=== PATIENT | male | born 1975 | race Caucasian/White ===

== ENCOUNTER 2018-01-30 15:11 | Emergency (ER) | payer BC, MEDICAID ==
[~2018-01-30] VITALS: Ht 193 cm; Wt 127.0 kg
[~2018-01-30 15:11] MED LIST: ATOR10TA PO; LOP25T PO; METO50TA16 PO; NO HOME MEDS; ZES10T PO
[2018-01-30 16:04] LABS: BASOPHILS # (AUTO) 0.1 X10'3 (0-0.2); BASOPHILS % (AUTO) 1.1 % (0-1); EOSINOPHILS # (AUTO) 0.6 X10'3 (0-0.9); EOSINOPHILS % (AUTO) 6.9 % (0-6); HEMATOCRIT 46.1 % (42.0-52.0); HEMOGLOBIN 16.2 g/dl (14.0-17.9); LYMPHOCYTES # (AUTO) 1.9 X10'3 (1.1-4.8); LYMPHOCYTES % (AUTO) 22.5 % (21-51); MEAN CORPUSCULAR HEMOGLOBIN 31.4 PG (27.0-31.0); MEAN CORPUSCULAR HGB CONC 35.1 % (33.0-36.5); MEAN CORPUSCULAR VOLUME 89.7 FL (78-98); MEAN PLATELET VOLUME 7.3 FL (7.4-10.4); MONOCYTES # (AUTO) 0.5 X10'3 (0-0.9); NEUTROPHILS # (AUTO) 5.3 X10'3 (1.8-7.7); NEUTROPHILS % (AUTO) 63.5 % (42-75); PLATELET COUNT 223 X10'3 (140-440); RED BLOOD COUNT 5.14 X10'6 (4.70-6.10); WHITE BLOOD COUNT 8.3 X10'3 (4.5-11.0)
[2018-01-30 16:16] VITALS: BP 117/93
[2018-01-30 16:16] LABS: ANION GAP 6 (8-16); BLOOD UREA NITROGEN 15 MG/DL (7-18); BUN/CREATININE RATIO 12.5 (5.4-32.0); CHLORIDE 100 MMOL/L (99-107); GLUCOSE 198 MG/DL (70-104); POTASSIUM 4.4 MMOL/L (3.5-5.1); SODIUM 135 MMOL/L (135-145); TOTAL CARBON DIOXIDE 29.2 MMOL/L (24-32)
[2018-01-30 16:17] LABS: ALANINE AMINOTRANSFERASE 113 U/L (12-78); ALBUMIN/GLOBULIN RATIO 1.1 (1.1-1.5); ALKALINE PHOSPHATASE 100 IU/L (46-116); ASPARTATE AMINO TRANSFERASE 47 U/L (10-37); BILIRUBIN,TOTAL 0.6 MG/DL (0.1-1.0); LIPASE 191 U/L (73-393); TOTAL PROTEIN 7.8 G/DL (6.4-8.2); eGFR 66 ML/MIN
[2018-01-30] MEDS ORDERED: TRAM50TA2 PO (17:00)
== END 2018-01-30 17:00 | disposition home or self-care (01) ==
LOC: ER 15:12
DX: M54.9 Dorsalgia, unspecified (principal); R11.0 Nausea; I10 Essential (primary) hypertension; E78.00 Pure hypercholesterolemia, unspecified; Z90.49 Acquired absence of other specified parts of digestive tract; Z98.890 Other specified postprocedural states; Z79.899 Other long term (current) drug therapy
CPT/HCPCS: 36415; 71045; 72070; 80053; 83690; 84484; 85025; 93005; 99285

== ENCOUNTER 2022-12-04 07:19 | Inpatient (IN) | payer SELFPAY ==
[~2022-12-04] VITALS: Ht 193 cm; Wt 136.3 kg
[2022-12-04] MEDS ORDERED: piperacillin/tazo 3.375gm/50ml 50 ML IV ONE (08:00)
[2022-12-04] MEDS ORDERED: ondansetron/PF 4mg/2ml inj IV ONE (08:00)
[2022-12-04] MEDS ORDERED: vancomycin/NS 1 GM ADD-VANTAGE 250 ML IV ONE (08:00)
[2022-12-04] MEDS: morphine 4 MG/ML inj SYRINge IV PRN ×2 (08:18→10:03)
[2022-12-04 08:40] LABS: BASOPHILS # (AUTO) 0.1 X10'3 (0-0.2); BASOPHILS % (AUTO) 0.7 % (0-1); EOSINOPHILS # (AUTO) 0.4 X10'3 (0-0.9); EOSINOPHILS % (AUTO) 3.6 % (0-6); HEMOGLOBIN 15.6 g/dl (14.0-17.9); LYMPHOCYTES # (AUTO) 1.5 X10'3 (1.1-4.8); LYMPHOCYTES % (AUTO) 14.3 % (21-51); MEAN CORPUSCULAR HEMOGLOBIN 31.9 PG (27.0-31.0); MEAN CORPUSCULAR HGB CONC 34.6 g/dL (33.0-36.5); MEAN CORPUSCULAR VOLUME 92.1 FL (78-98); MEAN PLATELET VOLUME 7.6 FL (7.4-10.4); MONOCYTES # (AUTO) 1.2 X10'3 (0-0.9); MONOCYTES % (AUTO) 11.3 % (2-12); NEUTROPHILS # (AUTO) 7.5 X10'3 (1.8-7.7); NEUTROPHILS % (AUTO) 70.1 % (42-75); PLATELET COUNT 240 X10'3 (140-440); RED BLOOD COUNT 4.89 X10'6 (4.70-6.10); WHITE BLOOD COUNT 10.8 X10'3 (4.5-11.0)
[2022-12-04 08:46] LABS: ALANINE AMINOTRANSFERASE 102 U/L (12-78); ALBUMIN 3.5 G/DL (3.4-5.0); ALBUMIN/GLOBULIN RATIO 0.9 (1.1-1.5); ALKALINE PHOSPHATASE 154 IU/L (46-116); ANION GAP 12 (8-16); ASPARTATE AMINO TRANSFERASE 69 U/L (10-37); BILIRUBIN,TOTAL 0.5 MG/DL (0.1-1.0); BLOOD UREA NITROGEN 9 MG/DL (7-18); BUN/CREATININE RATIO 8.2 (5.4-32.0); C-REACTIVE PROTEIN 2.15 MG/DL (0.0-0.5); CHLORIDE 96 MMOL/L (99-107); GLUCOSE 319 MG/DL (70-104); POTASSIUM 4.3 MMOL/L (3.5-5.1); SODIUM 132 MMOL/L (135-145); TOTAL CARBON DIOXIDE 24.2 MMOL/L (24-32); TOTAL PROTEIN 7.6 G/DL (6.4-8.2); eGFR 71 ML/MIN
[2022-12-04] MEDS ORDERED: ringers solution, lactated 1000ml IV soln IV ONE (09:15)
[2022-12-04] MEDS ORDERED: LORazepam 2 mg/ml vial IV PRN (10:10)
[2022-12-04] MEDS ORDERED: nicotine 14mg patch - 24hr TD SCH (10:10)
[2022-12-04] MEDS ORDERED: dextrose 50%-water 50ml dispensing syringe IV PRN ×2 (10:15)
[2022-12-04] MEDS ORDERED: potassium Cl 20 mEq SR tablet PO PRN ×2 (10:15)
[2022-12-04] MEDS ORDERED: morphine 2 MG/ML inj. syringe IV PRN ×3 (10:15→11:50)
[2022-12-04] MEDS ORDERED: DEXTROSE 15 GM of carb/4 tabs (each vial/BOTTLE has 4 tablets) PO PRN ×2 (10:15)
[2022-12-04] MEDS ORDERED: glucagon, human recombinant 1mg kit SUBCUT PRN (10:15)
[2022-12-04] MEDS ORDERED: potassium Cl 40MEQ/1/2NS 520ml 520 ML IV PRN (10:15)
[2022-12-04] MEDS ORDERED: magnesium 4gm in 100ml NS 100 ML IV PRN (10:15)
[2022-12-04] MEDS ORDERED: HYDROcodone/acetaminophen 5mg/325mg tablet PO PRN ×2 (10:15→11:50)
[2022-12-04] MEDS ORDERED: acetaminophen 325mg tablet PO PRN (10:15)
[2022-12-04] MEDS ORDERED: HYDROcodone/acetaminophen 10/325mg tab PO PRN (10:15)
[2022-12-04] MEDS ORDERED: magnesium Cl slow-release 64mg tablet PO PRN (10:15)
[2022-12-04] MEDS ORDERED: MESSAGE TO PHARMACY PO ONE (10:15)
[2022-12-04] MEDS: normal saline 1000ml 1,000 ML IV SCH ×3 (10:26→17:35)
--- NOTE | 2022-12-04 11:00 | NUR ---
Received report from ED RNValerie
[2022-12-04 11:25] VITALS: BP 173/107
[2022-12-04] MEDS: HYDROcodone/acetaminophen 10/325mg tab PO PRN ×2 (12:00→15:53)
[2022-12-04 12:37] LABS: HEMOGLOBIN A1C 9.9 % (4.5-6.2)
[2022-12-04] MEDS ORDERED: GABA300C PO (12:57)
[2022-12-04] MEDS ORDERED: GLIP5TAB13 PO (12:57)
[2022-12-04] MEDS ORDERED: METF-1203 (12:57)
[2022-12-04] MEDS: insulin Lispro (HumaLOG) vial - multi-dose SQ SCH ×2 (13:06→19:44)
[2022-12-04] MEDS ORDERED: LOSA100T4 PO (13:31)
[2022-12-04] MEDS: morphine 2 MG/ML inj. syringe IV PRN ×3 (13:48→19:38)
[2022-12-04] MEDS: piperacillin/tazo 3.375gm/50ml 50 ML IV SCH (15:53)
[2022-12-04 17:30] VITALS: BP 158/110
[2022-12-04] MEDS: nicotine 21mg patch - 24 hr TD SCH (17:35)
[2022-12-04] MEDS ORDERED: oxyCODONE/APAP 10/325mg tablet PO PRN (19:25)
[2022-12-04] MEDS: losartan 50mg tablet PO SCH (19:39)
[2022-12-04] MEDS: gabapentin 300mg capsule PO SCH (19:39)
[2022-12-04 22:00] VITALS: BP 177/106
[2022-12-04] MEDS: oxyCODONE/APAP 10/325mg tablet PO PRN (22:13)
[2022-12-04] MEDS: VANCOmycin 1250MG/NS 250ml Bag 250 ML IV SCH (22:14)
[2022-12-04] MEDS: heparin, porcine 5000 units/ml vial SQ SCH (22:15)
[2022-12-04] MEDS: insulin glargine (Lantus) pen - multi-dose SQ SCH (22:25)
[2022-12-05] MEDS: piperacillin/tazo 3.375gm/50ml 50 ML IV SCH ×4 (00:12→23:32)
[2022-12-05] MEDS: morphine 2 MG/ML inj. syringe IV PRN ×6 (00:12→21:40)
[2022-12-05] MEDS: oxyCODONE/APAP 10/325mg tablet PO PRN ×6 (02:07→23:27)
[2022-12-05] MEDS: normal saline 1000ml 1,000 ML IV SCH (04:00)
--- NOTE | 2022-12-05 06:30 | NUR ---
Problems reprioritized. Patient report given, questions answered & plan of care reviewed with DUSTIN Gutiérrez.
--- NOTE | 2022-12-05 06:37 | NUR ---
Patient in room [facility]. I have received report from Marlena CHAN and had the opportunity to ask questions and assume patient care.
[2022-12-05 06:43] VITALS: BP 155/103
[2022-12-05 07:09] LABS: BASOPHILS # (AUTO) 0.1 X10'3 (0-0.2); BASOPHILS % (AUTO) 1.1 % (0-1); EOSINOPHILS # (AUTO) 0.5 X10'3 (0-0.9); EOSINOPHILS % (AUTO) 7.5 % (0-6); HEMATOCRIT 41.2 % (42.0-52.0); HEMOGLOBIN 14.2 g/dl (14.0-17.9); LYMPHOCYTES # (AUTO) 1.4 X10'3 (1.1-4.8); LYMPHOCYTES % (AUTO) 21.2 % (21-51); MEAN CORPUSCULAR HEMOGLOBIN 32.3 PG (27.0-31.0); MEAN CORPUSCULAR HGB CONC 34.6 g/dL (33.0-36.5); MEAN CORPUSCULAR VOLUME 93.4 FL (78-98); MEAN PLATELET VOLUME 7.5 FL (7.4-10.4); MONOCYTES # (AUTO) 0.6 X10'3 (0-0.9); MONOCYTES % (AUTO) 9.3 % (2-12); NEUTROPHILS # (AUTO) 4.1 X10'3 (1.8-7.7); NEUTROPHILS % (AUTO) 60.9 % (42-75); PLATELET COUNT 191 X10'3 (140-440); RED BLOOD COUNT 4.41 X10'6 (4.70-6.10); RED CELL DISTRIBUTION WIDTH 13.3 % (11.5-14.5); WHITE BLOOD COUNT 6.7 X10'3 (4.5-11.0)
[2022-12-05 07:13] LABS: ALANINE AMINOTRANSFERASE 108 U/L (12-78); ALBUMIN/GLOBULIN RATIO 0.8 (1.1-1.5); ALKALINE PHOSPHATASE 132 IU/L (46-116); ANION GAP 6 (8-16); ASPARTATE AMINO TRANSFERASE 92 U/L (10-37); BILIRUBIN,TOTAL 0.5 MG/DL (0.1-1.0); BLOOD UREA NITROGEN 12 MG/DL (7-18); BUN/CREATININE RATIO 13.5 (5.4-32.0); CHLORIDE 99 MMOL/L (99-107); CREATININE 0.89 MG/DL (0.60-1.10); GLUCOSE 263 MG/DL (70-104); SODIUM 134 MMOL/L (135-145); TOTAL CARBON DIOXIDE 28.6 MMOL/L (24-32); TOTAL PROTEIN 6.8 G/DL (6.4-8.2); eGFR > 90 ML/MIN
[2022-12-05] MEDS: multivitamins, therapeutics tablet PO SCH (08:42)
[2022-12-05] MEDS: nicotine 21mg patch - 24 hr TD SCH (08:42)
[2022-12-05] MEDS: heparin, porcine 5000 units/ml vial SQ SCH ×2 (08:43→20:53)
[2022-12-05] MEDS: insulin Lispro (HumaLOG) vial - multi-dose SQ SCH ×3 (08:53→19:04)
[2022-12-05 11:11] VITALS: BP 166/104
[2022-12-05] MEDS: VANCOmycin 1250MG/NS 250ml Bag 250 ML IV SCH ×2 (11:24→20:54)
--- NOTE | 2022-12-05 14:24 | NUR ---
DM Consult: Pt hx T2DM A1C 9.9% takes metformin and glimepiride at home w/ chronic etoh per EMR. Pt admit DX R 4th toe gangrene w/ cellulitis receiving routine thiamine, folic acid, MVI per EMR. Pt seen by RD for written/verbal DM diet ed w/ RD contact information provided. Pt reports not much ed in past regarding DM diet initially took it seriously but has disregarded it for quite some time. Pt reports now stopping etoh and planning/researching w/ SO to follow appropriate DM guidelines. Pt reports has no glucometer or test strips at home; CM notified. RD encouraged pt to contact dietitian's office further nutrition questions/concerns. Addendum: 12/05/22 at 1425 [address] RD Amended: Links added.
--- NOTE | 2022-12-05 18:14 | NUR ---
Problems reprioritized. Patient report given, questions answered & plan of care reviewed with Savanna CHAN.
--- NOTE | 2022-12-05 18:30 | NUR ---
Patient in room [facility]. I have received report from RONAN and had the opportunity to ask questions and assume patient care.
[2022-12-05 19:00] VITALS: BP 172/110
[2022-12-05] MEDS ORDERED: VANCOMYCIN LEVEL IV ONE (20:30)
[2022-12-05 20:50] VITALS: BP 187/109
[2022-12-05] MEDS: insulin glargine (Lantus) pen - multi-dose SQ SCH (20:50)
[2022-12-05] MEDS: losartan 50mg tablet PO SCH (20:53)
[2022-12-05] MEDS: gabapentin 300mg capsule PO SCH (20:53)
[2022-12-05] MEDS: temazepam 15mg capsule PO PRN (20:53)
[2022-12-05 21:40] LABS: COLOR,URINE YELLOW (Yellow); GLUCOSE, URINE NEGATIVE (Neg); KETONES,URINE NEGATIVE (Neg); LEUKOCYTE ESTERASE ,URINE NEGATIVE (Neg); NITRITES, URINE NEGATIVE (Neg); OCCULT BLOOD,URINE NEGATIVE (Neg); PROTEIN,URINE NEGATIVE (Neg); UROBILINOGEN,URINE 0.2 E.U/dL (0.2-1.0)
[2022-12-05 21:45] LABS: UA COLLECTION TYPE CLN CATCH MIDSTREAM
[2022-12-05 21:46] LABS: CLARITY,URINE SLIGHTLY CLOUDY (Clear); MUCUS STRANDS FEW /LPF (Neg); SQUAMOUS EPITHELIAL CELL,UR FEW /LPF (FEW)
[2022-12-05 21:47] LABS: BACTERIA,URINE NONE SEEN /HPF (Neg); CAL OXALATE CRYSTALS 4+ /HPF (NEGATIVE); RBC,URINE 0-2 /HPF (0-2); WBC,URINE 0-4 /HPF (0-4)
[2022-12-05 22:00] VITALS: BP 169/95
--- NOTE | 2022-12-05 22:40 | NUR ---
DR PEREZ NOTIFIED: PT CONTINUES TO C/O PAIN 05/12. MORPHINE IV AND PERCOCET PO ALREADY GIVEN. PT BP 169/95. AWAITING CALL BACK.
[2022-12-06] VITALS (27 sets, daily range): BP systolic 130–194; BP diastolic 87–127
[2022-12-06] MEDS: HYDROmorphone 1 mg/ml syringe IV PRN ×4 (00:30→18:47)
[2022-12-06] MEDS: normal saline 1000ml 1,000 ML IV SCH ×3 (02:03→19:47)
[2022-12-06] MEDS: hydrALAZINE 20mg/ml inj. IV PRN ×3 (02:04→21:38)
[2022-12-06] MEDS: LORazepam 1 MG tablet PO PRN ×3 (02:11→20:07)
[2022-12-06] MEDS: ondansetron/PF 4mg/2ml inj IV PRN (05:19)
--- NOTE | 2022-12-06 05:20 | NUR ---
PT FINISHED GIVING SELF PRE-OP BED BATH. STARTED COMPLAINING OF DIZZINESS AND NAUSEA. PT INSTRUCTED TO LAY DOWN IN BED. BLOOD SUGAR CHECKED 168, BP 194/127, HR 98, OXYGEN SATURATIONS 98% RA. PT DENIES PAIN. ZOFRAN IV GIVEN. DR PEREZ NOTIFIED OF ABOVE INFORMATION. AWAITING CALL BACK.
--- NOTE | 2022-12-06 06:57 | NUR ---
Patient in room [facility]. I have received report from Savanna CHAN and had the opportunity to ask questions and assume patient care.
[2022-12-06 07:03] LABS: BASOPHILS % (AUTO) 0.7 % (0-1); EOSINOPHILS # (AUTO) 0.5 X10'3 (0-0.9); EOSINOPHILS % (AUTO) 8.3 % (0-6); HEMATOCRIT 38.9 % (42.0-52.0); HEMOGLOBIN 13.5 g/dl (14.0-17.9); LYMPHOCYTES % (AUTO) 18.3 % (21-51); MEAN CORPUSCULAR HEMOGLOBIN 32.1 PG (27.0-31.0); MEAN CORPUSCULAR HGB CONC 34.6 g/dL (33.0-36.5); MEAN CORPUSCULAR VOLUME 92.9 FL (78-98); MEAN PLATELET VOLUME 7.4 FL (7.4-10.4); MONOCYTES # (AUTO) 0.6 X10'3 (0-0.9); MONOCYTES % (AUTO) 10.1 % (2-12); NEUTROPHILS # (AUTO) 3.6 X10'3 (1.8-7.7); NEUTROPHILS % (AUTO) 62.6 % (42-75); PLATELET COUNT 172 X10'3 (140-440); RED BLOOD COUNT 4.19 X10'6 (4.70-6.10); RED CELL DISTRIBUTION WIDTH 12.9 % (11.5-14.5); WHITE BLOOD COUNT 5.7 X10'3 (4.5-11.0)
[2022-12-06 07:13] LABS: PRE OP PARTIAL THROMB. TIME 29 SECONDS (22-32)
[2022-12-06 07:15] LABS: ALANINE AMINOTRANSFERASE 138 U/L (12-78); ALBUMIN 2.9 G/DL (3.4-5.0); ALBUMIN/GLOBULIN RATIO 0.8 (1.1-1.5); ALKALINE PHOSPHATASE 114 IU/L (46-116); ANION GAP 5 (8-16); ASPARTATE AMINO TRANSFERASE 133 U/L (10-37); BILIRUBIN,TOTAL 0.6 MG/DL (0.1-1.0); BLOOD UREA NITROGEN 7 MG/DL (7-18); BUN/CREATININE RATIO 8.6 (5.4-32.0); CALCIUM 8.8 MG/DL (8.5-10.1); CHLORIDE 101 MMOL/L (99-107); CREATININE 0.81 MG/DL (0.60-1.10); GLUCOSE 186 MG/DL (70-104); POTASSIUM 3.8 MMOL/L (3.5-5.1); SODIUM 134 MMOL/L (135-145); TOTAL CARBON DIOXIDE 27.9 MMOL/L (24-32); TOTAL PROTEIN 6.5 G/DL (6.4-8.2); eGFR > 90 ML/MIN
[2022-12-06] MEDS: heparin, porcine 5000 units/ml vial SQ SCH ×2 (07:18→20:06)
[2022-12-06] MEDS: nicotine 21mg patch - 24 hr TD SCH (07:26)
[2022-12-06] MEDS: piperacillin/tazo 3.375gm/50ml 50 ML IV SCH ×2 (07:26→19:33)
[2022-12-06] MEDS: multivitamins, therapeutics tablet PO SCH (07:28)
[2022-12-06] MEDS: vancomycin/NS 1 GM ADD-VANTAGE 250 ML IV SCH ×2 (09:08→17:37)
[2022-12-06] MEDS: oxyCODONE/APAP 10/325mg tablet PO PRN ×3 (09:09→21:40)
[2022-12-06] MEDS ORDERED: ringers solution, lacted 1,000 ML IV SCH (11:55)
[2022-12-06] MEDS ORDERED: ondansetron/PF 4mg/2ml inj IV PRN (11:55)
[2022-12-06] MEDS ORDERED: proCHLORperazine 10 MG/2 ml inj IV PRN (11:55)
[2022-12-06] MEDS ORDERED: meperidine/PF 25mg/ml syringe IV PRN ×3 (11:55)
[2022-12-06] MEDS ORDERED: morphine 2 MG/ML inj. syringe IV PRN (11:55)
--- NOTE | 2022-12-06 14:15 | NUR ---
Called recovery to give report, report given to Elizabeth CHAN
[2022-12-06] MEDS ORDERED: sevoflurane 250ml liquid IH ONE (14:47)
[2022-12-06] MEDS ORDERED: fentaNYL/PF 50MCG/1 ML 2ML syringe ONE (14:58)
[2022-12-06] MEDS ORDERED: LIDOcaine 2% (20mg/ml) 5ml vial ONE (14:59)
[2022-12-06] MEDS ORDERED: midazolam 1 mg/ML 2ml injection ONE (14:59)
[2022-12-06] MEDS ORDERED: propofol inj 20 ML IV ONE (14:59)
[2022-12-06] MEDS ORDERED: BUPIVAcaine/PF 2.5 mg/ml (0.25%) 30ml vial ONE (15:06)
[2022-12-06] MEDS ORDERED: vancomycin 1,000mg inj ONE (15:18)
[2022-12-06] MEDS ORDERED: bacitracin 15gm ointment TP ONE ×2 (15:21→15:35)
[2022-12-06] MEDS ORDERED: BUPIVAcaine/PF 2.5 mg/ml (0.25%) 30ml vial IJ ONE (15:35)
--- NOTE | 2022-12-06 15:39 | NUR ---
Received from OR via HOSPITAL BED TO ROOM 6 , accompanied by Anesthesiologist DR PIERSON and report given by Anesthesiolgist. PT PRESENTS WITH 20G RIGHT AC, DRESSING ON RIGHT FOOT CDI, VSS. Addendum: 12/06/22 at 1558 by Elizabeth Myers RN, RN Amended: Links added.
[2022-12-06] MEDS ORDERED: labetalol 20mg/4ml (5mg/ml) syringe IV PRN (16:15)
[2022-12-06] MEDS: labetalol 20mg/4ml (5mg/ml) syringe IV PRN ×3 (16:34→16:47)
[2022-12-06] MEDS: morphine 4 MG/ML inj SYRINge IV PRN ×2 (16:52→16:59)
--- NOTE | 2022-12-06 17:19 | NUR ---
Report called to receiving nurse RONAN CHAN. Transferred via HOSOPITAL BED WITH TELE MONITOR. BED IN LOW LOCKED POSITION WITH CALL LIGHT IN REACH. CHART TAKEN TO NURSES STATION. Belongings WERE LEFT IN PT ROOM 344. Special Issues communicated to receiving nurse. Addendum: 12/06/22 at 1728 by Elizabeth Myers RN, RN Amended: Links added.
--- NOTE | 2022-12-06 17:23 | NUR ---
Received report from Elizabeth CHAN patient arrived on floor at 1715. post-op vital signs started.
--- NOTE | 2022-12-06 18:21 | NUR ---
Problems reprioritized. Patient report given, questions answered & plan of care reviewed with Alyssa Shah RN.
[2022-12-06] MEDS: gabapentin 300mg capsule PO SCH (20:07)
[2022-12-06] MEDS: losartan 50mg tablet PO SCH (20:07)
[2022-12-06] MEDS: insulin glargine (Lantus) pen - multi-dose SQ SCH (21:44)
[2022-12-07] MEDS: vancomycin/NS 1 GM ADD-VANTAGE 250 ML IV SCH (00:10)
[2022-12-07] MEDS: HYDROmorphone 1 mg/ml syringe IV PRN ×4 (00:11→20:58)
[2022-12-07] MEDS: temazepam 15mg capsule PO PRN ×2 (01:40→21:10)
[2022-12-07] MEDS: piperacillin/tazo 3.375gm/50ml 50 ML IV SCH ×3 (01:40→18:59)
[2022-12-07] MEDS: oxyCODONE/APAP 10/325mg tablet PO PRN ×5 (01:57→23:11)
[2022-12-07 02:00] VITALS: BP 160/100
[2022-12-07 06:15] LABS: BASOPHILS # (AUTO) 0.1 X10'3 (0-0.2); EOSINOPHILS # (AUTO) 0.4 X10'3 (0-0.9); EOSINOPHILS % (AUTO) 5.7 % (0-6); HEMATOCRIT 39.5 % (42.0-52.0); HEMOGLOBIN 13.9 g/dl (14.0-17.9); LYMPHOCYTES # (AUTO) 1.5 X10'3 (1.1-4.8); LYMPHOCYTES % (AUTO) 19.2 % (21-51); MEAN CORPUSCULAR HEMOGLOBIN 32.8 PG (27.0-31.0); MEAN CORPUSCULAR HGB CONC 35.3 g/dL (33.0-36.5); MEAN CORPUSCULAR VOLUME 92.9 FL (78-98); MEAN PLATELET VOLUME 7.1 FL (7.4-10.4); MONOCYTES # (AUTO) 0.9 X10'3 (0-0.9); MONOCYTES % (AUTO) 11.2 % (2-12); NEUTROPHILS # (AUTO) 4.9 X10'3 (1.8-7.7); NEUTROPHILS % (AUTO) 62.9 % (42-75); PLATELET COUNT 188 X10'3 (140-440); RED BLOOD COUNT 4.25 X10'6 (4.70-6.10); RED CELL DISTRIBUTION WIDTH 12.9 % (11.5-14.5); WHITE BLOOD COUNT 7.7 X10'3 (4.5-11.0)
[2022-12-07 06:34] LABS: ALANINE AMINOTRANSFERASE 128 U/L (12-78); ALBUMIN/GLOBULIN RATIO 0.8 (1.1-1.5); ALKALINE PHOSPHATASE 118 IU/L (46-116); ANION GAP 5 (8-16); ASPARTATE AMINO TRANSFERASE 75 U/L (10-37); BILIRUBIN,TOTAL 0.9 MG/DL (0.1-1.0); BLOOD UREA NITROGEN 7 MG/DL (7-18); BUN/CREATININE RATIO 7.8 (5.4-32.0); CALCIUM 8.8 MG/DL (8.5-10.1); CHLORIDE 100 MMOL/L (99-107); GLUCOSE 187 MG/DL (70-104); POTASSIUM 3.9 MMOL/L (3.5-5.1); SODIUM 135 MMOL/L (135-145); TOTAL CARBON DIOXIDE 30.1 MMOL/L (24-32); eGFR 90 ML/MIN
--- NOTE | 2022-12-07 06:39 | NUR ---
Problems reprioritized. Patient report given, questions answered & plan of care reviewed with HUBERT CHAN.
[2022-12-07 06:53] VITALS: BP 168/98
[2022-12-07] MEDS: normal saline 1000ml 1,000 ML IV SCH ×2 (08:15→13:48)
[2022-12-07] MEDS ORDERED: VANCOMYCIN LEVEL IV ONE (08:30)
[2022-12-07] MEDS: insulin Lispro (HumaLOG) vial - multi-dose SQ SCH ×3 (08:56→19:26)
[2022-12-07] MEDS: heparin, porcine 5000 units/ml vial SQ SCH ×2 (08:59→21:03)
[2022-12-07] MEDS: multivitamins, therapeutics tablet PO SCH (08:59)
[2022-12-07] MEDS: nicotine 21mg patch - 24 hr TD SCH (09:00)
[2022-12-07 11:00] VITALS: BP 177/104
--- NOTE | 2022-12-07 11:37 | NUR ---
Dr. Hood in to see patient, educated patient on outcomes.
[2022-12-07] MEDS: VANCOmycin 1250MG/NS 250ml Bag 250 ML IV SCH ×2 (13:35→21:05)
[2022-12-07 14:39] VITALS: BP 116/69
[2022-12-07 18:00] VITALS: BP 169/106
--- NOTE | 2022-12-07 18:30 | NUR ---
Patient in room [facility]. I have received report from HUBERT CHAN and had the opportunity to ask questions and assume patient care.
[2022-12-07] MEDS: gabapentin 300mg capsule PO SCH (21:00)
[2022-12-07] MEDS: losartan 50mg tablet PO SCH (21:00)
[2022-12-07] MEDS: insulin glargine (Lantus) pen - multi-dose SQ SCH (21:21)
[2022-12-07 22:00] VITALS: BP 162/97
[2022-12-08] VITALS (7 sets, daily range): BP systolic 158–173; BP diastolic 92–109
[2022-12-08] MEDS: piperacillin/tazo 3.375gm/50ml 50 ML IV SCH ×4 (01:56→23:41)
[2022-12-08] MEDS: HYDROmorphone 1 mg/ml syringe IV PRN ×6 (02:04→23:47)
[2022-12-08] MEDS: normal saline 1000ml 1,000 ML IV SCH ×3 (04:15→23:44)
[2022-12-08] MEDS: oxyCODONE/APAP 10/325mg tablet PO PRN ×4 (04:51→17:57)
[2022-12-08 06:17] LABS: BASOPHILS # (AUTO) 0.1 X10'3 (0-0.2); BASOPHILS % (AUTO) 0.6 % (0-1); EOSINOPHILS # (AUTO) 0.4 X10'3 (0-0.9); HEMATOCRIT 37.6 % (42.0-52.0); HEMOGLOBIN 13.3 g/dl (14.0-17.9); LYMPHOCYTES % (AUTO) 12.3 % (21-51); MEAN CORPUSCULAR HEMOGLOBIN 32.8 PG (27.0-31.0); MEAN CORPUSCULAR HGB CONC 35.3 g/dL (33.0-36.5); MEAN CORPUSCULAR VOLUME 92.9 FL (78-98); MEAN PLATELET VOLUME 7.2 FL (7.4-10.4); MONOCYTES # (AUTO) 0.8 X10'3 (0-0.9); NEUTROPHILS % (AUTO) 72.1 % (42-75); PLATELET COUNT 218 X10'3 (140-440); RED BLOOD COUNT 4.05 X10'6 (4.70-6.10); RED CELL DISTRIBUTION WIDTH 12.8 % (11.5-14.5); WHITE BLOOD COUNT 8.3 X10'3 (4.5-11.0)
--- NOTE | 2022-12-08 06:20 | NUR ---
Problems reprioritized. Patient report given, questions answered & plan of care reviewed with TIM CHAN.
[2022-12-08 06:21] LABS: ALANINE AMINOTRANSFERASE 93 U/L (12-78); ALBUMIN 2.9 G/DL (3.4-5.0); ALBUMIN/GLOBULIN RATIO 0.7 (1.1-1.5); ALKALINE PHOSPHATASE 115 IU/L (46-116); ANION GAP 8 (8-16); ASPARTATE AMINO TRANSFERASE 41 U/L (10-37); BILIRUBIN,TOTAL 0.7 MG/DL (0.1-1.0); BLOOD UREA NITROGEN 10 MG/DL (7-18); BUN/CREATININE RATIO 11.6 (5.4-32.0); CHLORIDE 101 MMOL/L (99-107); CREATININE 0.86 MG/DL (0.60-1.10); GLUCOSE 189 MG/DL (70-104); SODIUM 135 MMOL/L (135-145); TOTAL CARBON DIOXIDE 25.7 MMOL/L (24-32); TOTAL PROTEIN 6.9 G/DL (6.4-8.2); eGFR > 90 ML/MIN
--- NOTE | 2022-12-08 06:23 | NUR ---
Patient in room [facility]. I have received report from DUSTIN Huertas and had the opportunity to ask questions and assume patient care.
[2022-12-08] MEDS: hydrALAZINE 20mg/ml inj. IV PRN ×2 (07:04→13:46)
[2022-12-08] MEDS: ondansetron/PF 4mg/2ml inj IV PRN ×2 (07:06→13:46)
[2022-12-08] MEDS: multivitamins, therapeutics tablet PO SCH (07:08)
[2022-12-08] MEDS: nicotine 21mg patch - 24 hr TD SCH (07:10)
[2022-12-08] MEDS: heparin, porcine 5000 units/ml vial SQ SCH ×2 (07:12→19:30)
[2022-12-08] MEDS: insulin Lispro (HumaLOG) vial - multi-dose SQ SCH ×3 (09:29→19:22)
[2022-12-08] MEDS ORDERED: VANCOMYCIN LEVEL IV ONE (11:30)
--- NOTE | 2022-12-08 15:58 | NUR ---
PAGER ID: [phone] MESSAGE: 344B- Patient BP 173/111 hr 99. Had hydralazine 10mg IV 2 hours ago and has not gone down. c/o headache and nausea. Cozaar 100mg is scheduled at 2100- [facility] 2294
--- NOTE | 2022-12-08 16:31 | NUR ---
PAGER ID: [phone] MESSAGE: 344B- Esther Fong- pt BP has been in the 170's. Only has cozaar at HS. last given was 2 hours ago BP was 173/111. Dilaudid given and now BP is 160/102. pt still c/o headache and some nausea. Any new orders-Delmy [id number]
--- NOTE | 2022-12-08 17:35 | NUR ---
PAGER ID: [phone] MESSAGE: [id number]- Devon Fong- pt states feeling "sick never felt this way before" also "head feels heavy." BP 167/103 c/o nausea as well, BG 156. Appears tachypnea but denies being SOB. - Delmy [id number]
--- NOTE | 2022-12-08 18:35 | NUR ---
Problems reprioritized. Patient report given, questions answered & plan of care reviewed with DUSTIN Huertas.
[2022-12-08] MEDS: losartan 50mg tablet PO SCH (19:26)
[2022-12-08] MEDS: gabapentin 300mg capsule PO SCH (19:27)
[2022-12-08] MEDS: temazepam 15mg capsule PO PRN (19:29)
[2022-12-08] MEDS: insulin glargine (Lantus) pen - multi-dose SQ SCH (22:48)
[2022-12-09] MEDS: oxyCODONE/APAP 10/325mg tablet PO PRN ×2 (03:02→07:46)
[2022-12-09] MEDS: ondansetron/PF 4mg/2ml inj IV PRN ×2 (03:04→13:05)
[2022-12-09] MEDS: HYDROmorphone 1 mg/ml syringe IV PRN ×5 (05:24→23:48)
[2022-12-09 06:00] VITALS: BP 167/110
--- NOTE | 2022-12-09 06:17 | NUR ---
Problems reprioritized. Patient report given, questions answered & plan of care reviewed with TIM CHAN.
[2022-12-09 06:42] LABS: BASOPHILS % (AUTO) 0.7 % (0-1); EOSINOPHILS # (AUTO) 0.5 X10'3 (0-0.9); EOSINOPHILS % (AUTO) 6.7 % (0-6); HEMATOCRIT 35.7 % (42.0-52.0); HEMOGLOBIN 12.3 g/dl (14.0-17.9); LYMPHOCYTES # (AUTO) 1.1 X10'3 (1.1-4.8); LYMPHOCYTES % (AUTO) 16.1 % (21-51); MEAN CORPUSCULAR HEMOGLOBIN 32.3 PG (27.0-31.0); MEAN CORPUSCULAR HGB CONC 34.6 g/dL (33.0-36.5); MEAN CORPUSCULAR VOLUME 93.5 FL (78-98); MEAN PLATELET VOLUME 7.2 FL (7.4-10.4); MONOCYTES % (AUTO) 13.3 % (2-12); NEUTROPHILS # (AUTO) 4.5 X10'3 (1.8-7.7); NEUTROPHILS % (AUTO) 63.2 % (42-75); PLATELET COUNT 238 X10'3 (140-440); RED BLOOD COUNT 3.82 X10'6 (4.70-6.10); RED CELL DISTRIBUTION WIDTH 12.8 % (11.5-14.5); WHITE BLOOD COUNT 7.1 X10'3 (4.5-11.0)
[2022-12-09 06:57] LABS: ALANINE AMINOTRANSFERASE 80 U/L (12-78); ALBUMIN 2.7 G/DL (3.4-5.0); ALBUMIN/GLOBULIN RATIO 0.7 (1.1-1.5); ALKALINE PHOSPHATASE 97 IU/L (46-116); ANION GAP 4 (8-16); ASPARTATE AMINO TRANSFERASE 55 U/L (10-37); BILIRUBIN,TOTAL 0.5 MG/DL (0.1-1.0); BLOOD UREA NITROGEN 6 MG/DL (7-18); BUN/CREATININE RATIO 9.1 (5.4-32.0); CALCIUM 8.8 MG/DL (8.5-10.1); CHLORIDE 102 MMOL/L (99-107); CREATININE 0.66 MG/DL (0.60-1.10); GLUCOSE 163 MG/DL (70-104); POTASSIUM 3.9 MMOL/L (3.5-5.1); SODIUM 134 MMOL/L (135-145); TOTAL CARBON DIOXIDE 27.6 MMOL/L (24-32); TOTAL PROTEIN 6.6 G/DL (6.4-8.2); eGFR > 90 ML/MIN
--- NOTE | 2022-12-09 07:10 | NUR ---
PAGER ID: [phone] MESSAGE: [id number] Lance- pt WBC increased from 8.3 to 15.7. RLE red and edematous. no abx ordered.- Delmy [id number] Addendum: 12/09/22 at 0711 by Delmy Steele RN incorrect patient chart.
[2022-12-09] MEDS: hydrALAZINE 20mg/ml inj. IV PRN ×2 (07:22→14:26)
[2022-12-09] MEDS: folic acid 1mg tablet PO SCH (07:24)
[2022-12-09] MEDS: multivitamins, therapeutics tablet PO SCH (07:24)
[2022-12-09] MEDS: thiamine 100mg tablet PO SCH (07:24)
[2022-12-09] MEDS: nicotine 21mg patch - 24 hr TD SCH (07:26)
[2022-12-09] MEDS: piperacillin/tazo 3.375gm/50ml 50 ML IV SCH ×3 (07:27→23:50)
[2022-12-09] MEDS: heparin, porcine 5000 units/ml vial SQ SCH ×2 (07:27→19:55)
--- NOTE | 2022-12-09 08:18 | NUR ---
PAGER ID: [phone] MESSAGE: [id number]- Fong, T- pt c/o N/V and headache. Too soon for zofran (given 5 hours ago) any new orders?- Delmy 6797
[2022-12-09] MEDS: metoprolol succinate 25mg (24-HOUR) SR. Tablet PO SCH (09:42)
[2022-12-09] MEDS: metoclopramide 5 mg/ml inj IV PRN ×2 (09:45→17:42)
[2022-12-09] MEDS: insulin Lispro (HumaLOG) vial - multi-dose SQ SCH ×2 (09:55→13:13)
[2022-12-09] MEDS: normal saline 1000ml 1,000 ML IV SCH ×2 (09:58→20:00)
[2022-12-09 10:00] VITALS: BP 165/115
--- NOTE | 2022-12-09 10:29 | NUR ---
Initial: Pt admit DX R foot cellulitis w/ 4th toe gangrene, T2DM, DM neuropathy, and hx etoh abuse per EMR. S/p OR for toe amputation this admit receiving routine thiamine, folic acid, MVI for etoh hx per EMR. Initial PO ~84% avg carb controlled diet though regressed ~50% vs refusing past ~1.5 days likely related to new N/V episodes in EMR. LBM 3/8 receiving PRN zofran and PRN reglan started today per EMR. Given pt large stature and fluctuating intake overall partially meeting needs. RD recommends strawberry William smoothie BIDBD and Ensure High Protein WL to assist meeting needs-MD notified. IF current PO trends persist would benefit from transition to Ensure Plus High Protein to assist meeting needs. Will monitor for further PO trends and nutrition intervention needs this admit. Rec: 1. continue carb controlled diet; encourage PO 2. strawberry William smoothie BIDBD and Ensure High Protein WL; pending physician verification in EMR 3. IF PO regression persists transition ONS to Ensure Plus High Protein to better meet needs 4. bowel care/anti-emetic per rx 5. scaled wt this admit; subsequent weekly wt Addendum: 12/09/22 at [address] Amended: Links added.
[2022-12-09] MEDS: lactose-reduced food (Ensure High Protein) 237ml bottle PO SCH (12:30)
[2022-12-09] MEDS: oxyCODONE IR 5mg (immed. release) tablet PO PRN ×2 (13:04→17:42)
--- NOTE | 2022-12-09 13:35 | NUR ---
PAGER ID: [phone] MESSAGE: 344B- Ajit, T- pt BP currently is 182/117 hr 91 and 184/122. He had tropolol 25mg at 0942. Do you want me to give the hydralazine PRN as ordered or do you want a diff order?- Delmy 4929
--- NOTE | 2022-12-09 14:18 | NUR ---
Dr. Barnes was in to see patient this morning and aware patient BP has been elevated and hydralazine was given this morning. Dr. Barnes stated that patient should be on PO BP med and not the IV hydralazine. Tropolol XL and reglan was ordered but Patient BP continues to be elevated with c/o of nausea and headache. Dr. Barnes notified.
--- NOTE | 2022-12-09 14:18 | NUR ---
PAGER ID: [phone] MESSAGE: 344B- Ajit, T- BP 176/107 hr 89. Still c/o nausea and headache. Pain med was given and still complaints. Ok to give the IV hydralazine or do you want PO med? - Delmy 6933
--- NOTE | 2022-12-09 16:28 | NUR ---
PAGER ID: [phone] MESSAGE: [id number]- Devon Fong- pt BP was 182/117 gave hydralazine 10mg IV and dilaudid 1mg at 1426. BP is now 178/109 HR 92. Please advise - Delmy 8681
[2022-12-09] MEDS: JUVEN Smoothie Arginine/Glut./Ca2+Bmb (Juven 19.3pkt) 240ml cup PO SCH (17:30)
[2022-12-09] MEDS: acetaminophen 325mg tablet PO PRN (17:43)
[2022-12-09 18:00] VITALS: BP 174/100
--- NOTE | 2022-12-09 18:23 | NUR ---
Problems reprioritized. Patient report given, questions answered & plan of care reviewed with DUSTIN Huertas.
[2022-12-09] MEDS: gabapentin 300mg capsule PO SCH (19:53)
[2022-12-09] MEDS: temazepam 15mg capsule PO PRN (19:54)
[2022-12-09] MEDS: losartan 50mg tablet PO SCH (19:54)
[2022-12-09 22:00] VITALS: BP 167/96
[2022-12-09] MEDS: insulin glargine (Lantus) pen - multi-dose SQ SCH (22:15)
[2022-12-10] MEDS: HYDROmorphone 1 mg/ml syringe IV PRN ×4 (04:57→20:11)
[2022-12-10] MEDS: hydrALAZINE 20mg/ml inj. IV PRN ×2 (05:00→17:28)
[2022-12-10] MEDS: normal saline 1000ml 1,000 ML IV SCH (06:15)
--- NOTE | 2022-12-10 06:16 | NUR ---
Problems reprioritized. Patient report given, questions answered & plan of care reviewed with TIM CHAN.
[2022-12-10] MEDS: ondansetron/PF 4mg/2ml inj IV PRN ×2 (06:23→12:38)
[2022-12-10 06:32] VITALS: BP 171/106
--- NOTE | 2022-12-10 06:34 | NUR ---
Patient in room [facility]. I have received report from DUSTIN Huertas and had the opportunity to ask questions and assume patient care.
[2022-12-10] MEDS: JUVEN Smoothie Arginine/Glut./Ca2+Bmb (Juven 19.3pkt) 240ml cup PO SCH ×2 (07:30→17:30)
[2022-12-10 08:00] VITALS: BP 166/105
[2022-12-10] MEDS: metoclopramide 5 mg/ml inj IV PRN (08:02)
[2022-12-10] MEDS: folic acid 1mg tablet PO SCH (08:08)
[2022-12-10] MEDS: thiamine 100mg tablet PO SCH (08:08)
[2022-12-10] MEDS: multivitamins, therapeutics tablet PO SCH (08:08)
[2022-12-10] MEDS: piperacillin/tazo 3.375gm/50ml 50 ML IV SCH ×2 (08:08→15:38)
[2022-12-10] MEDS: metoprolol succinate 25mg (24-HOUR) SR. Tablet PO SCH (08:10)
[2022-12-10] MEDS: gabapentin 400mg capsule PO SCH ×3 (08:11→20:04)
[2022-12-10] MEDS: lisinopril 20mg tablet PO SCH ×2 (08:11→20:05)
[2022-12-10] MEDS: nicotine 21mg patch - 24 hr TD SCH (08:12)
[2022-12-10] MEDS: oxyCODONE IR 5mg (immed. release) tablet PO PRN ×3 (08:14→22:03)
[2022-12-10] MEDS: heparin, porcine 5000 units/ml vial SQ SCH ×2 (08:32→20:02)
--- NOTE | 2022-12-10 08:36 | NUR ---
Student Medication Administration: For this medication-pass time frame, all medication were reviewed, dispensed, administered and documented per hospital policy by Loc Ellis student nurse with Nicolette Medina Rn Instructor.
[2022-12-10] MEDS: insulin Lispro (HumaLOG) vial - multi-dose SQ SCH ×3 (09:44→19:29)
[2022-12-10 11:07] VITALS: BP 166/105
[2022-12-10 11:45] LABS: ALBUMIN 2.9 G/DL (3.4-5.0); ANION GAP 8 (8-16); BLOOD UREA NITROGEN 4 MG/DL (7-18); CALCIUM 9.3 MG/DL (8.5-10.1); CHLORIDE 101 MMOL/L (99-107); CREATININE 0.67 MG/DL (0.60-1.10); GLUCOSE 160 MG/DL (70-104); SODIUM 136 MMOL/L (135-145); TOTAL CARBON DIOXIDE 26.9 MMOL/L (24-32); eGFR > 90 ML/MIN
[2022-12-10] MEDS: metoclopramide 5 mg/ml inj IV SCH ×2 (13:59→20:00)
--- NOTE | 2022-12-10 13:59 | NUR ---
PRESSURE ULCER EDUCATION: DEFINITION: A pressure ulcer is an area of skin that breaks down when you stay in one position too long. The constant pressure against the skin reduces the blood flow to that area and the affected tissue dies. CAUSES: "Being bedridden or in a wheelchair "Fragile skin "Having a chronic condition, such as diabetes or vascular disease "Inability to move certain parts of your body without assistance "Older age "Incontinence of urine or stool SYMPTOMS: "A reddened area that DOES NOT turn white when pressed on - this can be the beginning of a pressure ulcer "A blister, deep sore or a crater - these can be advanced pressure ulcers FIRST AID: "Relieve the pressure on this area "Keep the area clean and dry "Call your primary doctor if you see any of the above symptoms "DO NOT massage the area "DO NOT use a donut shaped or ring shaped pillow- these actually interfere with the blood flow and cause complications PREVENTION: "Check for pressure ulcers everyday "Change position at least every two hours to relieve pressure "Use items that help relieve pressure- pillows, sheepskin, foam padding, and powders. "Keep skin clean and dry "Eat healthy well balanced meals "Exercise daily IF YOU SEE ANY OF THESE SYMPTOMS WHILE IN THE HOSPITAL - TELL YOUR NURSE IMMEDIATELY. IF YOU SEE ANY OF THESE SYMPTOMS WHILE AT HOME OR HAVE ANY QUESTIONS OR CONCERNS ABOUT PRESSURE ULCERS - CALL YOUR PRIMARY DOCTOR IMMEDIATELY. Addendum: 12/10/22 at 1359 by Patricia Emery LVN Amended: Links added.
[2022-12-10 15:40] VITALS: BP 174/109
--- NOTE | 2022-12-10 15:45 | NUR ---
Student Medication Administration: For this medication-pass time frame, all medication were reviewed, dispensed, administered and documented per hospital policy by Loc Ellis student nurse with Jackeline Medina RN Instructor.
[2022-12-10 18:00] VITALS: BP 172/102
--- NOTE | 2022-12-10 18:28 | NUR ---
Problems reprioritized. Patient report given, questions answered & plan of care reviewed with DUSTIN Huertas.
--- NOTE | 2022-12-10 18:31 | NUR ---
Student documentation: I have reviewed and agree with all interventions, assessments performed and documented by Chet Ellis student nurse, by Jackeline Medina RN Instructor.
--- NOTE | 2022-12-10 18:35 | NUR ---
Patient in room [facility]. I have received report from TIM CHAN and had the opportunity to ask questions and assume patient care.
[2022-12-10] MEDS: temazepam 15mg capsule PO PRN (20:05)
[2022-12-10] MEDS: gabapentin 300mg capsule PO SCH (20:09)
[2022-12-10] MEDS: insulin glargine (Lantus) pen - multi-dose SQ SCH (21:52)
[2022-12-10 22:00] VITALS: BP 168/102
[2022-12-11] MEDS: piperacillin/tazo 3.375gm/50ml 50 ML IV SCH ×4 (01:15→23:28)
[2022-12-11] MEDS: metoclopramide 5 mg/ml inj IV SCH ×4 (01:30→19:13)
[2022-12-11] MEDS: HYDROmorphone 1 mg/ml syringe IV PRN ×3 (03:49→21:33)
[2022-12-11 06:00] VITALS: BP 158/104
--- NOTE | 2022-12-11 06:38 | NUR ---
Problems reprioritized. Patient report given, questions answered & plan of care reviewed with MUNIRA CHAN.
--- NOTE | 2022-12-11 06:42 | NUR ---
Patient in room [facility]. I have received report from Alyssa Shah RN and had the opportunity to ask questions and assume patient care.
[2022-12-11] MEDS: JUVEN Smoothie Arginine/Glut./Ca2+Bmb (Juven 19.3pkt) 240ml cup PO SCH (07:30)
[2022-12-11] MEDS: thiamine 100mg tablet PO SCH (08:12)
[2022-12-11] MEDS: gabapentin 400mg capsule PO SCH ×2 (08:13→19:13)
[2022-12-11] MEDS: multivitamins, therapeutics tablet PO SCH (08:13)
[2022-12-11] MEDS: folic acid 1mg tablet PO SCH (08:13)
[2022-12-11] MEDS: lisinopril 20mg tablet PO SCH ×2 (08:14→19:13)
[2022-12-11] MEDS: metoprolol succinate 25mg (24-HOUR) SR. Tablet PO SCH (08:14)
[2022-12-11] MEDS: oxyCODONE IR 5mg (immed. release) tablet PO PRN ×3 (08:16→19:14)
[2022-12-11] MEDS: heparin, porcine 5000 units/ml vial SQ SCH ×2 (08:17→19:14)
[2022-12-11] MEDS: nicotine 21mg patch - 24 hr TD SCH (08:21)
[2022-12-11] MEDS: insulin Lispro (HumaLOG) vial - multi-dose SQ SCH ×3 (09:06→19:19)
[2022-12-11 10:00] VITALS: BP 155/101
--- NOTE | 2022-12-11 14:45 | NUR ---
Assumed care of pt. Pt awake and alert. Pt reported R Foot pain. Dilaudid to be given for pain. Call light within reach.
[2022-12-11 15:26] LABS: HBSAG SCREEN Negative (Negative); HEP A AB, IGM Negative (Negative)
--- NOTE | 2022-12-11 15:27 | NUR ---
Problems reprioritized. Patient report given, questions answered & plan of care reviewed with Jevoany CHANelectric blasting cap assembler .
[2022-12-11 18:00] VITALS: BP 167/93
[2022-12-11] MEDS: temazepam 15mg capsule PO PRN (21:32)
[2022-12-11] MEDS: gabapentin 300mg capsule PO SCH (21:32)
[2022-12-11] MEDS: insulin glargine (Lantus) pen - multi-dose SQ SCH (21:38)
[2022-12-11 22:00] VITALS: BP 172/107
[2022-12-11] MEDS: hydrALAZINE 20mg/ml inj. IV PRN (23:28)
[2022-12-12 02:00] VITALS: BP 169/94
[2022-12-12] MEDS: metoclopramide 5 mg/ml inj IV SCH ×2 (03:17→08:00)
[2022-12-12] MEDS: HYDROmorphone 1 mg/ml syringe IV PRN ×3 (03:17→20:43)
[2022-12-12 06:00] VITALS: BP 162/102
--- NOTE | 2022-12-12 06:16 | NUR ---
Problems reprioritized. Patient report given, questions answered & plan of care reviewed with Cristino CHAN. Addendum: 12/12/22 at 0617 by Aida Jackson RN Amended: Links added.
--- NOTE | 2022-12-12 06:59 | NUR ---
Patient in room [facility]. I have received report from EDGARDO CHAN and had the opportunity to ask questions and assume patient care.
[2022-12-12] MEDS: heparin, porcine 5000 units/ml vial SQ SCH ×2 (08:00→19:54)
[2022-12-12] MEDS: nicotine 21mg patch - 24 hr TD SCH (08:51)
[2022-12-12] MEDS: gabapentin 400mg capsule PO SCH ×2 (08:51→19:56)
[2022-12-12] MEDS: piperacillin/tazo 3.375gm/50ml 50 ML IV SCH ×2 (08:51→17:23)
[2022-12-12] MEDS: multivitamins, therapeutics tablet PO SCH (08:52)
[2022-12-12] MEDS: thiamine 100mg tablet PO SCH (08:52)
[2022-12-12] MEDS: metoprolol succinate 25mg (24-HOUR) SR. Tablet PO SCH (08:52)
[2022-12-12] MEDS: lisinopril 20mg tablet PO SCH ×2 (08:52→19:57)
[2022-12-12] MEDS: folic acid 1mg tablet PO SCH (08:52)
[2022-12-12] MEDS: oxyCODONE IR 5mg (immed. release) tablet PO PRN ×3 (08:53→22:29)
[2022-12-12] MEDS: insulin Lispro (HumaLOG) vial - multi-dose SQ SCH ×3 (08:58→20:08)
[2022-12-12 11:03] VITALS: BP 173/103
[2022-12-12] MEDS: hydrALAZINE 20mg/ml inj. IV PRN ×3 (11:58→22:31)
[2022-12-12 12:00] VITALS: BP 186/116
--- NOTE | 2022-12-12 13:23 | NUR ---
Page Sent PAGER ID: [phone] MESSAGE: [id number] VILLALPANDO, CAN PT BE DC OFF OF TELE AND THE REGLAN HE HAS NOT BEEN WANTING IT. PLEASE LET ME KNOW. THANKS RAHAT
--- NOTE | 2022-12-12 15:00 | NUR ---
PT IS NON WEIGHT BARING, PT IS NON COMPLIANT REFUSES TO USE THE CRUTCHES, IS WALKING ON HIS HEAL AROUND THE ROOM
--- NOTE | 2022-12-12 17:28 | NUR ---
Page Sent PAGER ID: [phone] MESSAGE: 344B IRASEMA, PT HAS A HIGH BP 177/105 AND I ALREADY GAVE HYDRALAZINE 5 HRS AGO, HE IS NOT DUE FOR IT FOR ABOUT AN HR. DO YOU WANT TO DO MORE HYDRALAZINE AND LESS TIME BETWEEN. PLEASE LET ME KNOW. RAHAT
[2022-12-12 18:00] VITALS: BP 167/101
--- NOTE | 2022-12-12 18:59 | NUR ---
Page Sent PAGER ID: [phone] MESSAGE: [phone] emely, can you please call me, this pt feels like they are short of breath cant caugh thier breath. his lung sounds have changed since this am. more fine small crackles. can he get a one-time dose of lasix.? vickie
[2022-12-12] MEDS ORDERED: furosemide 20 MG/2 ML vial IV ONE (19:20)
[2022-12-12 20:09] LABS: D-DIMER 1.76 MG/L FEU (0-0.50)
[2022-12-12] MEDS ORDERED: PERFLUTREN PROTEIN-A MICROSPHR (Optison) 0.22 MG/ML 3ML VIAL IV ONE (20:30)
[2022-12-12] MEDS: gabapentin 300mg capsule PO SCH (20:41)
[2022-12-12 21:27] LABS: BASOPHILS # (AUTO) 0.1 X10'3 (0-0.2); BASOPHILS % (AUTO) 0.7 % (0-1); EOSINOPHILS # (AUTO) 0.5 X10'3 (0-0.9); EOSINOPHILS % (AUTO) 5.7 % (0-6); HEMATOCRIT 39.2 % (42.0-52.0); HEMOGLOBIN 13.3 g/dl (14.0-17.9); LYMPHOCYTES # (AUTO) 1.3 X10'3 (1.1-4.8); LYMPHOCYTES % (AUTO) 13.8 % (21-51); MEAN CORPUSCULAR HEMOGLOBIN 31.4 PG (27.0-31.0); MEAN CORPUSCULAR HGB CONC 33.9 g/dL (33.0-36.5); MEAN CORPUSCULAR VOLUME 92.7 FL (78-98); MEAN PLATELET VOLUME 6.7 FL (7.4-10.4); MONOCYTES # (AUTO) 1.3 X10'3 (0-0.9); MONOCYTES % (AUTO) 13.1 % (2-12); NEUTROPHILS # (AUTO) 6.4 X10'3 (1.8-7.7); NEUTROPHILS % (AUTO) 66.7 % (42-75); PLATELET COUNT 402 X10'3 (140-440); RED BLOOD COUNT 4.23 X10'6 (4.70-6.10); RED CELL DISTRIBUTION WIDTH 12.9 % (11.5-14.5); WHITE BLOOD COUNT 9.6 X10'3 (4.5-11.0)
[2022-12-12] MEDS ORDERED: iohexol 350MG/ML 100ml bottle IV ONE (21:30)
[2022-12-12 21:40] LABS: ALANINE AMINOTRANSFERASE 155 U/L (12-78); ALBUMIN 3.3 G/DL (3.4-5.0); ALBUMIN/GLOBULIN RATIO 0.8 (1.1-1.5); ALKALINE PHOSPHATASE 114 IU/L (46-116); ANION GAP 9 (8-16); ASPARTATE AMINO TRANSFERASE 79 U/L (10-37); BILIRUBIN,TOTAL 0.5 MG/DL (0.1-1.0); BLOOD UREA NITROGEN 10 MG/DL (7-18); BUN/CREATININE RATIO 9.3 (5.4-32.0); CALCIUM 9.8 MG/DL (8.5-10.1); CHLORIDE 101 MMOL/L (99-107); CREATININE 1.08 MG/DL (0.60-1.10); GLUCOSE 137 MG/DL (70-104); POTASSIUM 3.5 MMOL/L (3.5-5.1); SODIUM 137 MMOL/L (135-145); TOTAL CARBON DIOXIDE 26.9 MMOL/L (24-32); TOTAL PROTEIN 7.7 G/DL (6.4-8.2); eGFR 73 ML/MIN
[2022-12-12] MEDS: insulin glargine (Lantus) pen - multi-dose SQ SCH (22:21)
[2022-12-12] MEDS: temazepam 15mg capsule PO PRN (22:27)
[2022-12-12 22:30] VITALS: BP 184/92
[2022-12-13] MEDS: piperacillin/tazo 3.375gm/50ml 50 ML IV SCH ×3 (00:42→16:41)
[2022-12-13 00:48] VITALS: BP 145/77
[2022-12-13 02:03] VITALS: BP 161/97
[2022-12-13] MEDS: HYDROmorphone 1 mg/ml syringe IV PRN ×3 (02:11→19:11)
--- NOTE | 2022-12-13 02:45 | NUR ---
Problems reprioritized. Patient report given, questions answered & plan of care reviewed with anila foy.
--- NOTE | 2022-12-13 03:05 | NUR ---
Patient in room [facility]. I have received report from RAHAT and had the opportunity to ask questions and assume patient care.
[2022-12-13] MEDS: oxyCODONE IR 5mg (immed. release) tablet PO PRN ×4 (04:49→21:20)
[2022-12-13 06:00] VITALS: BP 155/90
[2022-12-13 06:13] LABS: BASOPHILS # (AUTO) 0.1 X10'3 (0-0.2); BASOPHILS % (AUTO) 0.8 % (0-1); EOSINOPHILS # (AUTO) 0.5 X10'3 (0-0.9); EOSINOPHILS % (AUTO) 5.1 % (0-6); HEMATOCRIT 37.8 % (42.0-52.0); HEMOGLOBIN 12.9 g/dl (14.0-17.9); LYMPHOCYTES # (AUTO) 1.8 X10'3 (1.1-4.8); LYMPHOCYTES % (AUTO) 18.3 % (21-51); MEAN CORPUSCULAR HEMOGLOBIN 31.8 PG (27.0-31.0); MEAN CORPUSCULAR HGB CONC 34.1 g/dL (33.0-36.5); MEAN CORPUSCULAR VOLUME 93.2 FL (78-98); MEAN PLATELET VOLUME 7.3 FL (7.4-10.4); MONOCYTES # (AUTO) 1.3 X10'3 (0-0.9); MONOCYTES % (AUTO) 12.6 % (2-12); NEUTROPHILS # (AUTO) 6.3 X10'3 (1.8-7.7); NEUTROPHILS % (AUTO) 63.2 % (42-75); PLATELET COUNT 369 X10'3 (140-440); RED BLOOD COUNT 4.06 X10'6 (4.70-6.10); RED CELL DISTRIBUTION WIDTH 12.9 % (11.5-14.5); WHITE BLOOD COUNT 9.9 X10'3 (4.5-11.0)
[2022-12-13 06:28] LABS: ALANINE AMINOTRANSFERASE 139 U/L (12-78); ALBUMIN/GLOBULIN RATIO 0.7 (1.1-1.5); ALKALINE PHOSPHATASE 110 IU/L (46-116); ANION GAP 7 (8-16); ASPARTATE AMINO TRANSFERASE 68 U/L (10-37); BILIRUBIN,TOTAL 0.5 MG/DL (0.1-1.0); BLOOD UREA NITROGEN 11 MG/DL (7-18); CALCIUM 9.5 MG/DL (8.5-10.1); CHLORIDE 100 MMOL/L (99-107); CREATININE 0.92 MG/DL (0.60-1.10); GLUCOSE 251 MG/DL (70-104); POTASSIUM 3.8 MMOL/L (3.5-5.1); SODIUM 134 MMOL/L (135-145); TOTAL CARBON DIOXIDE 26.8 MMOL/L (24-32); TOTAL PROTEIN 7.2 G/DL (6.4-8.2); eGFR 88 ML/MIN
[2022-12-13] MEDS: multivitamins, therapeutics tablet PO SCH (08:22)
[2022-12-13] MEDS: metoprolol succinate 25mg (24-HOUR) SR. Tablet PO SCH (08:22)
[2022-12-13] MEDS: folic acid 1mg tablet PO SCH (08:22)
[2022-12-13] MEDS: nicotine 21mg patch - 24 hr TD SCH (08:22)
[2022-12-13] MEDS: heparin, porcine 5000 units/ml vial SQ SCH ×2 (08:22→19:10)
[2022-12-13] MEDS: thiamine 100mg tablet PO SCH (08:23)
[2022-12-13] MEDS: gabapentin 400mg capsule PO SCH ×2 (08:23→19:25)
[2022-12-13] MEDS: lisinopril 20mg tablet PO SCH ×2 (08:23→19:25)
[2022-12-13] MEDS: insulin Lispro (HumaLOG) vial - multi-dose SQ SCH ×3 (08:26→19:14)
[2022-12-13 10:00] VITALS: BP 156/94
--- NOTE | 2022-12-13 17:00 | NUR ---
I have reviewed and agree with interventions, assessments, and documentation by Moon Chavarria LVN .
[2022-12-13 18:00] VITALS: BP 162/103
--- NOTE | 2022-12-13 18:12 | NUR ---
Problems reprioritized. Patient report given, questions answered & plan of care reviewed with Carisa CHAN.
[2022-12-13] MEDS: gabapentin 300mg capsule PO SCH (21:19)
[2022-12-13] MEDS: insulin glargine (Lantus) pen - multi-dose SQ SCH (21:21)
[2022-12-13] MEDS: temazepam 15mg capsule PO PRN (21:58)
[2022-12-13 22:00] VITALS: BP 163/96
[2022-12-13] MEDS ORDERED: ipratropium/albuterol 3ml nebule NEB SCH (23:00)
[2022-12-14] MEDS: piperacillin/tazo 3.375gm/50ml 50 ML IV SCH ×4 (00:01→23:17)
[2022-12-14 01:59] VITALS: BP 142/92
[2022-12-14] MEDS: HYDROmorphone 1 mg/ml syringe IV PRN ×4 (02:31→22:27)
[2022-12-14] MEDS: oxyCODONE IR 5mg (immed. release) tablet PO PRN ×2 (05:36→13:30)
--- NOTE | 2022-12-14 06:00 | NUR ---
DID PHYSICAL ASSESSMENT AT 0600, PT CURRENTLY ON ROOM AIR OXYGENATING AT 95%. PRN OXYGEN AT BEDSIDE.
--- NOTE | 2022-12-14 06:25 | NUR ---
Patient in room [facility]. I have received report from DUSTIN Huertas and had the opportunity to ask questions and assume patient care.
[2022-12-14 06:53] VITALS: BP 140/88
[2022-12-14] MEDS: gabapentin 400mg capsule PO SCH ×2 (07:07→19:30)
[2022-12-14] MEDS: folic acid 1mg tablet PO SCH (07:07)
[2022-12-14] MEDS: multivitamins, therapeutics tablet PO SCH (07:07)
[2022-12-14] MEDS: nicotine 21mg patch - 24 hr TD SCH (07:07)
[2022-12-14] MEDS: metoprolol succinate 25mg (24-HOUR) SR. Tablet PO SCH (07:07)
[2022-12-14] MEDS: lisinopril 20mg tablet PO SCH ×2 (07:07→19:30)
[2022-12-14] MEDS: thiamine 100mg tablet PO SCH (07:07)
[2022-12-14] MEDS: heparin, porcine 5000 units/ml vial SQ SCH ×2 (07:08→19:32)
[2022-12-14] MEDS: insulin Lispro (HumaLOG) vial - multi-dose SQ SCH ×3 (09:25→19:27)
--- NOTE | 2022-12-14 11:27 | NUR ---
F/u 12/14: Pt PO much improved since N/V resolving 12/10 mostly ~100% avg meals still partially meeting estimated needs large given stature. William/Ensure ONS still pending physician verification in EMR. TAZ balderas MD regarding ONS verification for wound healing needs. LBM 12/14 per EMR. Will continue to follow. Rec: 1. continue carb controlled diet; encourage PO 2. strawberry William smoothie BIDBD and Ensure High Protein WL; pending physician verification in EMR 3. IF adequate PO intake persists w/ ONS still unverified add double proteins TIDWM to better meet needs 4. bowel care per rx 5. scaled wt this admit; subsequent weekly wt Addendum: 12/14/22 at 1127 by Juan Manuel [address] RD Amended: Links added.
[2022-12-14 11:54] VITALS: BP 161/100
[2022-12-14 16:11] VITALS: BP 161/98
--- NOTE | 2022-12-14 18:24 | NUR ---
Problems reprioritized. Patient report given, questions answered & plan of care reviewed with DUSTIN Younger.
--- NOTE | 2022-12-14 18:56 | NUR ---
PT. STATES LAST bm 12/14/22. i DID NOT WITNESS Addendum: 12/14/22 at 1903 by Daria Timmons STUDENT MARK Amended: Links added.
--- NOTE | 2022-12-14 21:02 | NUR ---
Patient in room [facility]. I have received report from Carisa RN and had the opportunity to ask questions and assume patient care.
[2022-12-14 22:00] VITALS: BP 174/95
[2022-12-14] MEDS: gabapentin 300mg capsule PO SCH (22:22)
[2022-12-14] MEDS: insulin glargine (Lantus) pen - multi-dose SQ SCH (22:26)
--- NOTE | 2022-12-14 22:41 | NUR ---
Student Medication Administration: For this medication-pass time frame, all medication were reviewed, dispensed, administered and documented per hospital policy by Tena Dwyer [facility].
[2022-12-14 23:15] VITALS: BP 129/70
[2022-12-14] MEDS: temazepam 15mg capsule PO PRN (23:19)
[2022-12-15] MEDS: oxyCODONE IR 5mg (immed. release) tablet PO PRN ×3 (05:27→22:40)
[2022-12-15 06:38] VITALS: BP 160/102
--- NOTE | 2022-12-15 06:46 | NUR ---
Patient in room [facility]. I have received report from DUSTIN Muñoz and had the opportunity to ask questions and assume patient care.
--- NOTE | 2022-12-15 06:50 | NUR ---
Problems reprioritized. Patient report given, questions answered & plan of care reviewed with Delmy CHAN.
[2022-12-15 07:06] LABS: ALANINE AMINOTRANSFERASE 159 U/L (12-78); ALBUMIN 3.2 G/DL (3.4-5.0); ALBUMIN/GLOBULIN RATIO 0.7 (1.1-1.5); ALKALINE PHOSPHATASE 103 IU/L (46-116); ANION GAP 6 (8-16); ASPARTATE AMINO TRANSFERASE 75 U/L (10-37); BILIRUBIN,TOTAL 0.6 MG/DL (0.1-1.0); BLOOD UREA NITROGEN 13 MG/DL (7-18); BUN/CREATININE RATIO 15.7 (5.4-32.0); CALCIUM 9.9 MG/DL (8.5-10.1); CHLORIDE 100 MMOL/L (99-107); CREATININE 0.83 MG/DL (0.60-1.10); GLUCOSE 146 MG/DL (70-104); POTASSIUM 4.2 MMOL/L (3.5-5.1); SODIUM 133 MMOL/L (135-145); TOTAL CARBON DIOXIDE 26.7 MMOL/L (24-32); TOTAL PROTEIN 7.7 G/DL (6.4-8.2); eGFR > 90 ML/MIN
[2022-12-15] MEDS: folic acid 1mg tablet PO SCH (07:14)
[2022-12-15] MEDS: metoprolol succinate 25mg (24-HOUR) SR. Tablet PO SCH (07:14)
[2022-12-15] MEDS: multivitamins, therapeutics tablet PO SCH (07:14)
[2022-12-15] MEDS: thiamine 100mg tablet PO SCH (07:14)
[2022-12-15] MEDS: gabapentin 400mg capsule PO SCH ×2 (07:15→20:03)
[2022-12-15] MEDS: lisinopril 20mg tablet PO SCH ×2 (07:15→20:03)
[2022-12-15] MEDS: heparin, porcine 5000 units/ml vial SQ SCH ×2 (07:16→20:05)
[2022-12-15] MEDS: piperacillin/tazo 3.375gm/50ml 50 ML IV SCH ×2 (07:16→16:28)
[2022-12-15] MEDS: nicotine 21mg patch - 24 hr TD SCH (07:16)
[2022-12-15] MEDS: HYDROmorphone 1 mg/ml syringe IV PRN ×3 (08:35→20:15)
[2022-12-15] MEDS: insulin Lispro (HumaLOG) vial - multi-dose SQ SCH ×3 (08:45→20:14)
--- NOTE | 2022-12-15 11:33 | NUR ---
Student documentation: I have reviewed and agree with all interventions, assessments performed and documented by Licha student nurse.
[2022-12-15 12:27] VITALS: BP 114/70
--- NOTE | 2022-12-15 13:11 | NUR ---
DIABETIC FOOT CARE EDUCATION PROVIDED BY WOUND CARE * Wash your feet daily with lukewarm water and soap. * Dry your feet well, especially between the toes. * Keep the skin moisturized with lotion, but do not apply it between the toes. * Check your feet for blisters, cuts or sores. * Use an emery board to shape your toenails even with the ends of your toes. * Change daily into clean, soft socks or stockings, not too big or too small. * Keep your feet warm and dry. * Preferably wear special padded socks and shoes that fit well. * Never walk barefoot indoors or outdoors. * Examine your shoes everyday for cracks, scott, nails or anything that could hurt your feet. * Tell your doctor if you find any of these problems or have any concerns after examining your feet. Addendum: 12/15/22 at 1311 by Patricia Emery LVN Amended: Links added.
[2022-12-15 18:00] VITALS: BP 147/87
--- NOTE | 2022-12-15 18:09 | NUR ---
Problems reprioritized. Patient report given, questions answered & plan of care reviewed with DUSTIN Muñoz.
--- NOTE | 2022-12-15 18:15 | NUR ---
Patient in room [facility]. I have received report from Delmy CHAN and had the opportunity to ask questions and assume patient care.
[2022-12-15] MEDS: temazepam 15mg capsule PO PRN (22:18)
[2022-12-15] MEDS: gabapentin 300mg capsule PO SCH (22:18)
[2022-12-15] MEDS: insulin glargine (Lantus) pen - multi-dose SQ SCH (22:25)
--- NOTE | 2022-12-15 22:49 | NUR ---
Student Medication Administration: For this medication-pass time frame, all medication were reviewed, dispensed, administered and documented per hospital policy by Daria LAST [facility].
--- NOTE | 2022-12-15 23:03 | NUR ---
Student documentation: I have reviewed interventions, assessments performed and documented by Daria LAST [facility].
[2022-12-16] MEDS: piperacillin/tazo 3.375gm/50ml 50 ML IV SCH ×3 (00:50→15:08)
[2022-12-16] MEDS: HYDROmorphone 1 mg/ml syringe IV PRN ×4 (02:08→21:40)
[2022-12-16] MEDS: oxyCODONE IR 5mg (immed. release) tablet PO PRN ×3 (04:58→16:51)
--- NOTE | 2022-12-16 06:23 | NUR ---
Problems reprioritized. Patient report given, questions answered & plan of care reviewed with Delmy CHAN.
[2022-12-16 06:53] VITALS: BP 136/70
[2022-12-16] MEDS: gabapentin 400mg capsule PO SCH ×2 (07:21→20:09)
[2022-12-16] MEDS: metoprolol succinate 25mg (24-HOUR) SR. Tablet PO SCH (07:21)
[2022-12-16] MEDS: thiamine 100mg tablet PO SCH (07:22)
[2022-12-16] MEDS: folic acid 1mg tablet PO SCH (07:22)
[2022-12-16] MEDS: lisinopril 20mg tablet PO SCH ×2 (07:23→20:10)
[2022-12-16] MEDS: nicotine 21mg patch - 24 hr TD SCH (07:24)
[2022-12-16] MEDS: heparin, porcine 5000 units/ml vial SQ SCH ×2 (07:24→19:47)
[2022-12-16] MEDS: multivitamins, therapeutics tablet PO SCH (07:27)
[2022-12-16] MEDS: insulin Lispro (HumaLOG) vial - multi-dose SQ SCH ×4 (09:41→21:43)
[2022-12-16 11:39] VITALS: BP 128/78
[2022-12-16] MEDS: LORazepam 0.5 MG tablet PO PRN (15:45)
[2022-12-16 18:00] VITALS: BP 156/84
--- NOTE | 2022-12-16 19:14 | NUR ---
Problems reprioritized. Patient report given, questions answered & plan of care reviewed with DUSTIN Parra.
[2022-12-16] MEDS: gabapentin 300mg capsule PO SCH (21:39)
[2022-12-16] MEDS: temazepam 15mg capsule PO PRN (21:39)
[2022-12-16] MEDS: insulin glargine (Lantus) pen - multi-dose SQ SCH (21:46)
[2022-12-16 22:00] VITALS: BP 162/83
[2022-12-17] MEDS: piperacillin/tazo 3.375gm/50ml 50 ML IV SCH ×4 (00:14→23:50)
[2022-12-17] MEDS: oxyCODONE IR 5mg (immed. release) tablet PO PRN ×3 (01:58→17:49)
[2022-12-17] MEDS: HYDROmorphone 1 mg/ml syringe IV PRN ×3 (04:43→21:30)
[2022-12-17 06:00] VITALS: BP 125/60
--- NOTE | 2022-12-17 06:52 | NUR ---
Patient in room [facility] 344. I have received report from Aida CHAN and had the opportunity to ask questions and assume patient care.
--- NOTE | 2022-12-17 07:53 | NUR ---
PAGER ID: [phone] MESSAGE: ArchieB- Devon Fong: Patient has scheduled heparin but does not have recent CBC or CMP, do you want to order these? STELLA Wright [phone]
[2022-12-17] MEDS: folic acid 1mg tablet PO SCH (09:34)
[2022-12-17] MEDS: multivitamins, therapeutics tablet PO SCH (09:35)
[2022-12-17] MEDS: gabapentin 400mg capsule PO SCH ×2 (09:35→19:19)
[2022-12-17] MEDS: thiamine 100mg tablet PO SCH (09:35)
[2022-12-17] MEDS: metoprolol succinate 25mg (24-HOUR) SR. Tablet PO SCH (09:35)
[2022-12-17] MEDS: lisinopril 20mg tablet PO SCH ×2 (09:35→19:19)
[2022-12-17] MEDS: nicotine 21mg patch - 24 hr TD SCH (09:36)
[2022-12-17] MEDS: heparin, porcine 5000 units/ml vial SQ SCH ×2 (09:36→19:19)
[2022-12-17] MEDS: LORazepam 0.5 MG tablet PO PRN ×2 (09:43→21:30)
[2022-12-17] MEDS: insulin Lispro (HumaLOG) vial - multi-dose SQ SCH ×3 (09:45→19:23)
[2022-12-17 10:00] VITALS: BP 124/78
--- NOTE | 2022-12-17 13:27 | NUR ---
DIABETIC FOOT CARE EDUCATION PROVIDED BY WOUND CARE * Wash your feet daily with lukewarm water and soap. * Dry your feet well, especially between the toes. * Keep the skin moisturized with lotion, but do not apply it between the toes. * Check your feet for blisters, cuts or sores. * Use an emery board to shape your toenails even with the ends of your toes. * Change daily into clean, soft socks or stockings, not too big or too small. * Keep your feet warm and dry. * Preferably wear special padded socks and shoes that fit well. * Never walk barefoot indoors or outdoors. * Examine your shoes everyday for cracks, scott, nails or anything that could hurt your feet. * Tell your doctor if you find any of these problems or have any concerns after examining your feet. Addendum: 12/17/22 at 1328 by Patricia Emery LVN Amended: Links added.
[2022-12-17 18:00] VITALS: BP 125/71
--- NOTE | 2022-12-17 18:30 | NUR ---
OUTSIDE DEALER SALES REPRESENTATIVE documentation: I have reviewed and agree with all interventions, assessments performed and documented by Adriana Daly LVN .
--- NOTE | 2022-12-17 18:53 | NUR ---
Problems reprioritized. Patient report given, questions answered & plan of care reviewed with Aida CHAN.
[2022-12-17] MEDS: gabapentin 300mg capsule PO SCH (21:30)
[2022-12-17] MEDS: insulin glargine (Lantus) pen - multi-dose SQ SCH (21:35)
[2022-12-17 22:00] VITALS: BP 116/56
[2022-12-18] MEDS: HYDROmorphone 1 mg/ml syringe IV PRN ×3 (02:46→19:26)
[2022-12-18 05:30] VITALS: BP 124/72
[2022-12-18] MEDS: ondansetron/PF 4mg/2ml inj IV PRN (05:43)
[2022-12-18] MEDS: oxyCODONE IR 5mg (immed. release) tablet PO PRN ×3 (07:59→21:17)
[2022-12-18] MEDS: multivitamins, therapeutics tablet PO SCH (09:28)
[2022-12-18] MEDS: metoprolol succinate 25mg (24-HOUR) SR. Tablet PO SCH (09:28)
[2022-12-18] MEDS: thiamine 100mg tablet PO SCH (09:29)
[2022-12-18] MEDS: folic acid 1mg tablet PO SCH (09:29)
[2022-12-18] MEDS: heparin, porcine 5000 units/ml vial SQ SCH ×2 (09:30→21:12)
[2022-12-18] MEDS: piperacillin/tazo 3.375gm/50ml 50 ML IV SCH ×3 (09:32→23:28)
[2022-12-18] MEDS: nicotine 21mg patch - 24 hr TD SCH (09:32)
[2022-12-18] MEDS: gabapentin 400mg capsule PO SCH ×2 (09:35→21:15)
[2022-12-18] MEDS: lisinopril 20mg tablet PO SCH ×2 (09:37→21:15)
[2022-12-18] MEDS: insulin Lispro (HumaLOG) vial - multi-dose SQ SCH ×3 (09:51→19:26)
[2022-12-18 10:30] VITALS: BP 132/81
[2022-12-18 12:28] LABS: BASOPHILS # (AUTO) 0.1 X10'3 (0-0.2); BASOPHILS % (AUTO) 0.9 % (0-1); EOSINOPHILS # (AUTO) 0.6 X10'3 (0-0.9); EOSINOPHILS % (AUTO) 5.3 % (0-6); HEMATOCRIT 36.5 % (42.0-52.0); HEMOGLOBIN 12.3 g/dl (14.0-17.9); LYMPHOCYTES # (AUTO) 1.4 X10'3 (1.1-4.8); LYMPHOCYTES % (AUTO) 13.4 % (21-51); MEAN CORPUSCULAR HGB CONC 33.6 g/dL (33.0-36.5); MEAN CORPUSCULAR VOLUME 92.4 FL (78-98); MEAN PLATELET VOLUME 7.3 FL (7.4-10.4); MONOCYTES # (AUTO) 1.2 X10'3 (0-0.9); MONOCYTES % (AUTO) 11.1 % (2-12); NEUTROPHILS # (AUTO) 7.3 X10'3 (1.8-7.7); NEUTROPHILS % (AUTO) 69.3 % (42-75); PLATELET COUNT 423 X10'3 (140-440); RED BLOOD COUNT 3.95 X10'6 (4.70-6.10); RED CELL DISTRIBUTION WIDTH 12.6 % (11.5-14.5); WHITE BLOOD COUNT 10.5 X10'3 (4.5-11.0)
[2022-12-18] MEDS: LORazepam 0.5 MG tablet PO PRN (12:40)
[2022-12-18 12:41] LABS: ALANINE AMINOTRANSFERASE 106 U/L (12-78); ALBUMIN 2.9 G/DL (3.4-5.0); ALBUMIN/GLOBULIN RATIO 0.6 (1.1-1.5); ALKALINE PHOSPHATASE 98 IU/L (46-116); ANION GAP 3 (8-16); ASPARTATE AMINO TRANSFERASE 34 U/L (10-37); BILIRUBIN,TOTAL 0.3 MG/DL (0.1-1.0); BLOOD UREA NITROGEN 12 MG/DL (7-18); BUN/CREATININE RATIO 13.8 (5.4-32.0); CALCIUM 9.6 MG/DL (8.5-10.1); CHLORIDE 102 MMOL/L (99-107); CREATININE 0.87 MG/DL (0.60-1.10); GLUCOSE 224 MG/DL (70-104); POTASSIUM 4.3 MMOL/L (3.5-5.1); SODIUM 135 MMOL/L (135-145); TOTAL PROTEIN 7.6 G/DL (6.4-8.2); eGFR > 90 ML/MIN
--- NOTE | 2022-12-18 18:30 | NUR ---
Patient in room [facility] 344. I have received report from SKYLER and had the opportunity to ask questions and assume patient care.
[2022-12-18 19:00] VITALS: BP 134/90
--- NOTE | 2022-12-18 19:00 | NUR ---
REPORT GIVEN TO ELIDA CHAN, ALL QUESTIONS ANSWERED AT THIS TIME. PT RESTING COMFORTABLY IN BED.
[2022-12-18] MEDS: insulin glargine (Lantus) pen - multi-dose SQ SCH (21:10)
[2022-12-18] MEDS: temazepam 15mg capsule PO PRN (21:15)
[2022-12-18] MEDS: gabapentin 300mg capsule PO SCH (21:16)
[2022-12-18 22:00] VITALS: BP 118/66
[2022-12-19] MEDS: oxyCODONE IR 5mg (immed. release) tablet PO PRN ×3 (03:34→22:01)
[2022-12-19 06:00] VITALS: BP 106/64
--- NOTE | 2022-12-19 06:37 | NUR ---
Problems reprioritized. Patient report given, questions answered & plan of care reviewed with NIDIA.
[2022-12-19] MEDS: HYDROmorphone 1 mg/ml syringe IV PRN ×2 (09:44→16:26)
[2022-12-19] MEDS: piperacillin/tazo 3.375gm/50ml 50 ML IV SCH ×2 (09:46→16:23)
[2022-12-19] MEDS: thiamine 100mg tablet PO SCH (09:48)
[2022-12-19] MEDS: multivitamins, therapeutics tablet PO SCH (09:48)
[2022-12-19] MEDS: gabapentin 400mg capsule PO SCH ×2 (09:49→19:27)
[2022-12-19] MEDS: folic acid 1mg tablet PO SCH (09:49)
[2022-12-19] MEDS: heparin, porcine 5000 units/ml vial SQ SCH ×2 (09:49→19:28)
[2022-12-19] MEDS: nicotine 21mg patch - 24 hr TD SCH (09:50)
[2022-12-19] MEDS: metoprolol succinate 25mg (24-HOUR) SR. Tablet PO SCH (09:54)
[2022-12-19] MEDS: lisinopril 20mg tablet PO SCH ×2 (09:55→19:28)
[2022-12-19 11:00] VITALS: BP 128/81
[2022-12-19] MEDS: insulin Lispro (HumaLOG) vial - multi-dose SQ SCH ×2 (13:42→19:25)
--- NOTE | 2022-12-19 15:14 | NUR ---
F/u 12/14: Pt PO much improved since N/V resolving 12/10 mostly ~100% avg meals still partially meeting estimated needs large given stature. William/Ensure ONS still pending physician verification in EMR. TAZ paged regarding ONS verification for wound healing needs. LBM 12/14 per EMR. Will continue to follow. Rec: 1. continue carb controlled diet; double proteins TIDWM; encourage PO 2. strawberry William smoothie BIDBD and Ensure High Protein WL; pending physician verification in EMR 3. bowel care per rx 4. scaled wt this admit; subsequent weekly wt Addendum: 12/19/22 at 1514 by Juan Manuel Cunningham RD Amended: Links added.
--- NOTE | 2022-12-19 18:02 | NUR ---
Problems reprioritized. Patient report given, questions answered & plan of care reviewed with NIDIA CHAN.
[2022-12-19 18:30] VITALS: BP 132/76
--- NOTE | 2022-12-19 18:37 | NUR ---
Patient in room [facility] 344B. I have received report from DUSTIN MARRERO and had the opportunity to ask questions and assume patient care.
--- NOTE | 2022-12-19 18:38 | NUR ---
Problems reprioritized. Patient report given, questions answered & plan of care reviewed with DUSTIN GIANG.
[2022-12-19] MEDS: LORazepam 0.5 MG tablet PO PRN (19:26)
[2022-12-19 22:00] VITALS: BP 121/65
[2022-12-19] MEDS: gabapentin 300mg capsule PO SCH (22:01)
[2022-12-19] MEDS: insulin glargine (Lantus) pen - multi-dose SQ SCH (22:04)
[2022-12-20] MEDS: piperacillin/tazo 3.375gm/50ml 50 ML IV SCH ×3 (00:35→17:29)
[2022-12-20] MEDS: HYDROmorphone 1 mg/ml syringe IV PRN ×4 (00:37→22:14)
--- NOTE | 2022-12-20 02:53 | NUR ---
Problems reprioritized. Patient report given, questions answered & plan of care reviewed with finn foy.
--- NOTE | 2022-12-20 06:30 | NUR ---
Problems reprioritized. Patient report given, questions answered & plan of care reviewed with NIDIA.
--- NOTE | 2022-12-20 06:45 | NUR ---
Patient in room [facility] 344B. I have received report from DUSTIN MARRERO and had the opportunity to ask questions and assume patient care.
[2022-12-20 07:00] VITALS: BP 125/73
[2022-12-20] MEDS: multivitamins, therapeutics tablet PO SCH (09:38)
[2022-12-20] MEDS: gabapentin 400mg capsule PO SCH ×2 (09:38→22:04)
[2022-12-20] MEDS: metoprolol succinate 25mg (24-HOUR) SR. Tablet PO SCH (09:38)
[2022-12-20] MEDS: thiamine 100mg tablet PO SCH (09:38)
[2022-12-20] MEDS: lisinopril 20mg tablet PO SCH ×2 (09:39→22:08)
[2022-12-20] MEDS: nicotine 21mg patch - 24 hr TD SCH (09:39)
[2022-12-20] MEDS: folic acid 1mg tablet PO SCH (09:39)
[2022-12-20] MEDS: heparin, porcine 5000 units/ml vial SQ SCH ×2 (09:40→22:09)
[2022-12-20 11:00] VITALS: BP 137/83
[2022-12-20] MEDS: oxyCODONE IR 5mg (immed. release) tablet PO PRN ×2 (13:31→19:41)
[2022-12-20] MEDS: insulin Lispro (HumaLOG) vial - multi-dose SQ SCH ×2 (13:36→19:39)
[2022-12-20] MEDS: LORazepam 0.5 MG tablet PO PRN (15:47)
[2022-12-20 18:00] VITALS: BP 144/95
--- NOTE | 2022-12-20 18:45 | NUR ---
Patient in room [facility] 344. I have received report from Licha CHAN and had the opportunity to ask questions and assume patient care.
--- NOTE | 2022-12-20 18:54 | NUR ---
Problems reprioritized. Patient report given, questions answered & plan of care reviewed with DUSTIN FLETCHER. Addendum: 12/20/22 at 2336 by Wanda Barraza RN iLcha CHAN was the nurse. Addendum: 12/20/22 at 2338 by Wanda Barraza RN Please ignore above entry.
[2022-12-20 22:00] VITALS: BP 124/80
[2022-12-20] MEDS: gabapentin 300mg capsule PO SCH (22:07)
[2022-12-20] MEDS: temazepam 15mg capsule PO PRN (22:09)
[2022-12-20] MEDS: insulin glargine (Lantus) pen - multi-dose SQ SCH (22:31)
[2022-12-21] MEDS: piperacillin/tazo 3.375gm/50ml 50 ML IV SCH ×4 (00:14→23:54)
--- NOTE | 2022-12-21 01:13 | NUR ---
At the beginning of shift production associate patient had discussed that he would like to have a shower and then his foot redressed. However, by 1999, pt. had changed his mind stating he wanted to take it in the morning instead after his breakfast. I offered to change the dressing anyways, per MD order, but he declined stating "no, I'll wait to after my shower tomorrow". Dressing is still clean dry and intact at this time.
[2022-12-21 06:00] VITALS: BP 130/83
--- NOTE | 2022-12-21 06:45 | NUR ---
Problems reprioritized. Patient report given, questions answered & plan of care reviewed with Licha CHAN.
[2022-12-21] MEDS: HYDROmorphone 1 mg/ml syringe IV PRN ×3 (08:20→21:43)
[2022-12-21] MEDS: multivitamins, therapeutics tablet PO SCH (08:21)
[2022-12-21] MEDS: gabapentin 400mg capsule PO SCH ×2 (08:21→21:39)
[2022-12-21] MEDS: thiamine 100mg tablet PO SCH (08:21)
[2022-12-21] MEDS: metoprolol succinate 25mg (24-HOUR) SR. Tablet PO SCH (08:21)
[2022-12-21] MEDS: folic acid 1mg tablet PO SCH (08:21)
[2022-12-21] MEDS: nicotine 21mg patch - 24 hr TD SCH (08:22)
[2022-12-21] MEDS: heparin, porcine 5000 units/ml vial SQ SCH ×2 (08:27→21:48)
[2022-12-21] MEDS: insulin Lispro (HumaLOG) vial - multi-dose SQ SCH ×3 (08:36→19:33)
[2022-12-21] MEDS: lisinopril 20mg tablet PO SCH ×2 (08:55→21:42)
[2022-12-21 10:58] LABS: HEPATITIS C ANTIBODY Non Reactive
[2022-12-21 11:00] VITALS: BP 143/85
[2022-12-21] MEDS: LORazepam 0.5 MG tablet PO PRN ×2 (11:40→23:56)
[2022-12-21] MEDS: oxyCODONE IR 5mg (immed. release) tablet PO PRN ×3 (12:40→23:55)
[2022-12-21 18:00] VITALS: BP 138/65
--- NOTE | 2022-12-21 18:40 | NUR ---
Patient in room [facility] 344. I have received report from Licha CHAN and had the opportunity to ask questions and assume patient care.
--- NOTE | 2022-12-21 19:56 | NUR ---
Problems reprioritized. Patient report given, questions answered & plan of care reviewed with DUSTIN FRIEDMAN.
[2022-12-21] MEDS: gabapentin 300mg capsule PO SCH (21:39)
[2022-12-21] MEDS: temazepam 15mg capsule PO PRN (21:40)
[2022-12-21 22:00] VITALS: BP 121/77
[2022-12-21] MEDS: insulin glargine (Lantus) pen - multi-dose SQ SCH (22:03)
--- NOTE | 2022-12-21 23:50 | NUR ---
Patient awoke stating he had sudden sharp,numb and pins and needles to his LEFT foot 9. He stated that the right foot that has the infection/wound only 5/10. His foot was not swollen, had good pedal pulse and cap refill. Pt stated "it feels like the bone is going to rip thru the skin". Discussed that I would give him oxy ir as well as ativan and see if that made a difference and if not, to discuss with the DR tomorrow. Offered a warm blanket, or ice,or to elevate patient declined stating he wanted to see how the medication would work first.
[2022-12-22 06:00] VITALS: BP 129/88
[2022-12-22] MEDS: HYDROmorphone 1 mg/ml syringe IV PRN ×3 (06:01→20:12)
--- NOTE | 2022-12-22 06:43 | NUR ---
Received report from DUSTIN Muñoz: reviewed plan of care. Pt checked on, NAD
--- NOTE | 2022-12-22 06:45 | NUR ---
Patient report given to Domenica MELCHOR.
[2022-12-22] MEDS: insulin Lispro (HumaLOG) vial - multi-dose SQ SCH ×3 (08:23→19:14)
[2022-12-22] MEDS: heparin, porcine 5000 units/ml vial SQ SCH ×2 (08:26→20:11)
[2022-12-22] MEDS: thiamine 100mg tablet PO SCH (08:26)
[2022-12-22] MEDS: multivitamins, therapeutics tablet PO SCH (08:26)
[2022-12-22] MEDS: lisinopril 20mg tablet PO SCH ×2 (08:27→20:08)
[2022-12-22] MEDS: metoprolol succinate 25mg (24-HOUR) SR. Tablet PO SCH (08:27)
[2022-12-22] MEDS: folic acid 1mg tablet PO SCH (08:27)
[2022-12-22] MEDS: gabapentin 400mg capsule PO SCH (08:27)
[2022-12-22] MEDS: nicotine 21mg patch - 24 hr TD SCH (08:28)
[2022-12-22] MEDS: oxyCODONE IR 5mg (immed. release) tablet PO PRN ×2 (08:40→17:15)
[2022-12-22] MEDS: LORazepam 0.5 MG tablet PO PRN ×2 (08:40→17:28)
[2022-12-22] MEDS: piperacillin/tazo 3.375gm/50ml 50 ML IV SCH ×3 (08:40→23:50)
[2022-12-22 10:00] VITALS: BP 124/75
[2022-12-22] MEDS ORDERED: LIDOcaine 2% 5ml jelly TOP ONE (15:05)
[2022-12-22] MEDS ORDERED: LidoCAINE 2% Topical Jelly 11mL syringe TOP ONE (15:10)
--- NOTE | 2022-12-22 15:11 | NUR ---
Wound care in for weekly assessment of the right 4th toe amputation site. The pt. is sitting up in bed in no apparent acute distress. Greeted and explained the intent, agreeable to assessment. Removed the right foot dressing, no exudate noted to old dressing. The incisional site is approximating with sutures, dry with normal for skin surrounding. New dry dressing applied. The pt. is able to reposition himself in bed. Total body skin assessment deferred per his request. The plan is to see the patient with wound PA on 12/23/22 for evaluation of suture removal per surgeon directives. Communicated this with the patient and the primary nurse. Addendum: 12/22/22 at 1513 by Patricia Emery LVN Amended: Links added. Addendum: 12/22/22 at 1546 by Justine Cline RN In agreement w/ JULIANA MELCHOR charting
--- NOTE | 2022-12-22 15:12 | NUR ---
WOUND INFECTION EDUCATION PROVIDED BY WOUND CARE 1. Patient instructed to call their primary doctor, or go the ED immediately if any of the following symptoms occur: * Increased pain in wound * Increase in drainage from the wound * Redness in the skin surrounding the wound * Warmth in the skin surrounding the wound * Bleeding from the wound * Temperature of 101 or greater 2. If any of these occur while in the hospital tell a nurse immediately. Addendum: 12/22/22 at 1512 by Patricia Emery LVN Amended: Links added.
--- NOTE | 2022-12-22 17:30 | NUR ---
I have reviewed and agree with interventions, assessments, and documentation by NOREEN GalvinN2.
[2022-12-22 18:00] VITALS: BP 125/75
[2022-12-22] MEDS: temazepam 15mg capsule PO PRN (20:07)
[2022-12-22] MEDS: gabapentin 300mg capsule PO SCH (20:09)
[2022-12-22] MEDS: insulin glargine (Lantus) pen - multi-dose SQ SCH (21:41)
[2022-12-22 23:20] VITALS: BP 116/77
--- NOTE | 2022-12-23 00:10 | NUR ---
Patient in room [facility]. I have received report from GAY RN and had the opportunity to ask questions and assume patient care.
[2022-12-23] MEDS: HYDROmorphone 1 mg/ml syringe IV PRN ×2 (03:22→10:29)
[2022-12-23 06:00] VITALS: BP 112/74
--- NOTE | 2022-12-23 06:18 | NUR ---
Problems reprioritized. Patient report given, questions answered & plan of care reviewed with MUNIRA CHAN.
--- NOTE | 2022-12-23 07:01 | NUR ---
Patient in room [facility]. I have received report from Alyssa Shah RN and had the opportunity to ask questions and assume patient care.
[2022-12-23] MEDS: nicotine 21mg patch - 24 hr TD SCH (08:00)
[2022-12-23] MEDS: piperacillin/tazo 3.375gm/50ml 50 ML IV SCH ×2 (09:00→17:07)
[2022-12-23] MEDS: multivitamins, therapeutics tablet PO SCH (09:01)
[2022-12-23] MEDS: thiamine 100mg tablet PO SCH (09:01)
[2022-12-23] MEDS: folic acid 1mg tablet PO SCH (09:01)
[2022-12-23] MEDS: metoprolol succinate 25mg (24-HOUR) SR. Tablet PO SCH (09:02)
[2022-12-23] MEDS: lisinopril 20mg tablet PO SCH ×2 (09:03→20:18)
[2022-12-23] MEDS: oxyCODONE IR 5mg (immed. release) tablet PO PRN ×3 (09:06→20:19)
[2022-12-23] MEDS: heparin, porcine 5000 units/ml vial SQ SCH ×2 (09:07→20:21)
[2022-12-23 10:00] VITALS: BP 113/72
[2022-12-23] MEDS ORDERED: LIDOcaine 2% 5ml jelly TOP ONE (10:10)
[2022-12-23] MEDS: insulin Lispro (HumaLOG) vial - multi-dose SQ SCH ×3 (10:20→19:22)
[2022-12-23] MEDS ORDERED: LIDOcaine 2% jelly 6ml syringe ***for topical use only TOP ONE ×2 (10:30)
--- NOTE | 2022-12-23 13:31 | NUR ---
WOUND INFECTION EDUCATION PROVIDED BY WOUND CARE 1. Patient instructed to call their primary doctor, or go the ED immediately if any of the following symptoms occur: * Increased pain in wound * Increase in drainage from the wound * Redness in the skin surrounding the wound * Warmth in the skin surrounding the wound * Bleeding from the wound * Temperature of 101 or greater 2. If any of these occur while in the hospital tell a nurse immediately. Addendum: 12/23/22 at 1331 by Patricia Emery LVN Amended: Links added.
[2022-12-23] MEDS: LORazepam 0.5 MG tablet PO PRN ×2 (13:44→20:18)
[2022-12-23 18:00] VITALS: BP 113/72
--- NOTE | 2022-12-23 18:20 | NUR ---
Problems reprioritized. Patient report given, questions answered & plan of care reviewed with Alyssa Shah RN.
--- NOTE | 2022-12-23 18:30 | NUR ---
Patient in room [facility]. I have received report from MUNIRA CHAN and had the opportunity to ask questions and assume patient care.
[2022-12-23] MEDS: JUVEN Smoothie Arginine/Glut./Ca2+Bmb (Juven 19.3pkt) 240ml cup PO SCH (19:00)
[2022-12-23] MEDS: lactose-reduced food (Ensure High Protein) 237ml bottle PO SCH (19:00)
[2022-12-23] MEDS: gabapentin 300mg capsule PO SCH (20:17)
[2022-12-23] MEDS: temazepam 15mg capsule PO PRN (20:17)
[2022-12-23] MEDS: insulin glargine (Lantus) pen - multi-dose SQ SCH (21:47)
[2022-12-23 22:00] VITALS: BP 116/64
[2022-12-24] MEDS: piperacillin/tazo 3.375gm/50ml 50 ML IV SCH ×3 (00:28→15:22)
[2022-12-24] MEDS: oxyCODONE IR 5mg (immed. release) tablet PO PRN ×4 (00:33→20:45)
--- NOTE | 2022-12-24 06:10 | NUR ---
Problems reprioritized. Patient report given, questions answered & plan of care reviewed with RONAN CHAN.
--- NOTE | 2022-12-24 07:13 | NUR ---
Patient in room [facility]. I have received report from Alyssa Shah RN and had the opportunity to ask questions and assume patient care.
[2022-12-24 07:30] VITALS: BP 138/95
[2022-12-24] MEDS: JUVEN Smoothie Arginine/Glut./Ca2+Bmb (Juven 19.3pkt) 240ml cup PO SCH ×2 (07:59→17:55)
[2022-12-24] MEDS: nicotine 21mg patch - 24 hr TD SCH (08:00)
[2022-12-24] MEDS: heparin, porcine 5000 units/ml vial SQ SCH ×2 (08:00→20:59)
[2022-12-24] MEDS: insulin Lispro (HumaLOG) vial - multi-dose SQ SCH (08:54)
[2022-12-24] MEDS: metoprolol succinate 25mg (24-HOUR) SR. Tablet PO SCH (08:58)
[2022-12-24] MEDS: lisinopril 20mg tablet PO SCH ×2 (08:59→20:50)
[2022-12-24] MEDS: multivitamins, therapeutics tablet PO SCH (09:00)
[2022-12-24] MEDS: folic acid 1mg tablet PO SCH (09:00)
[2022-12-24] MEDS: thiamine 100mg tablet PO SCH (09:01)
--- NOTE | 2022-12-24 09:07 | NUR ---
Student Medication Administration: For this medication-pass time frame, all medication were reviewed, dispensed, administered and documented per hospital policy by CARINE Dykes STUDENT NURSE WITH Jackeline TRINH RN INSTRUCTOR.
[2022-12-24] MEDS: LORazepam 0.5 MG tablet PO PRN ×2 (09:28→15:22)
--- NOTE | 2022-12-24 09:36 | NUR ---
Student Medication Administration: For this medication-pass time frame, all medication were reviewed, dispensed, administered and documented per hospital policy by Humza Iraheta student nurse with Jackeline Medina RN instructor.
[2022-12-24 10:49] VITALS: BP 132/79
[2022-12-24] MEDS: lactose-reduced food (Ensure High Protein) 237ml bottle PO SCH (12:45)
--- NOTE | 2022-12-24 15:26 | NUR ---
Student Medication Administration: For this medication-pass time frame, all medication were reviewed, dispensed, administered and documented per hospital policy by Patti nursing secretary and Sary nursing intructor.
[2022-12-24 18:00] VITALS: BP 131/89
--- NOTE | 2022-12-24 18:21 | NUR ---
Problems reprioritized. Patient report given, questions answered & plan of care reviewed with Aida CHAN.
--- NOTE | 2022-12-24 19:23 | NUR ---
Student documentation: I have reviewed and agree with all interventions, assessments performed and documented by Humza Iraheta student nurse, by Jackeline Medina RN Instructor.
[2022-12-24] MEDS: gabapentin 300mg capsule PO SCH (20:41)
[2022-12-24] MEDS: temazepam 15mg capsule PO PRN (20:46)
[2022-12-24] MEDS: insulin glargine (Lantus) pen - multi-dose SQ SCH (21:28)
[2022-12-24 22:00] VITALS: BP 109/59
[2022-12-25] MEDS: LORazepam 0.5 MG tablet PO PRN ×3 (00:12→20:29)
[2022-12-25] MEDS: piperacillin/tazo 3.375gm/50ml 50 ML IV SCH ×4 (01:00→23:09)
[2022-12-25] MEDS: oxyCODONE IR 5mg (immed. release) tablet PO PRN ×3 (05:19→20:31)
[2022-12-25 05:26] LABS: BASOPHILS # (AUTO) 0.1 X10'3 (0-0.2); BASOPHILS % (AUTO) 1.7 % (0-1); EOSINOPHILS # (AUTO) 0.7 X10'3 (0-0.9); EOSINOPHILS % (AUTO) 9.2 % (0-6); HEMATOCRIT 35.6 % (42.0-52.0); HEMOGLOBIN 12.3 g/dl (14.0-17.9); LYMPHOCYTES # (AUTO) 1.6 X10'3 (1.1-4.8); LYMPHOCYTES % (AUTO) 22.1 % (21-51); MEAN CORPUSCULAR HEMOGLOBIN 31.1 PG (27.0-31.0); MEAN CORPUSCULAR HGB CONC 34.6 g/dL (33.0-36.5); MEAN CORPUSCULAR VOLUME 89.9 FL (78-98); MONOCYTES # (AUTO) 1.2 X10'3 (0-0.9); MONOCYTES % (AUTO) 17.4 % (2-12); NEUTROPHILS # (AUTO) 3.5 X10'3 (1.8-7.7); NEUTROPHILS % (AUTO) 49.6 % (42-75); PLATELET COUNT 379 X10'3 (140-440); RED BLOOD COUNT 3.96 X10'6 (4.70-6.10); RED CELL DISTRIBUTION WIDTH 12.5 % (11.5-14.5); WHITE BLOOD COUNT 7.1 X10'3 (4.5-11.0)
[2022-12-25 05:30] LABS: ALANINE AMINOTRANSFERASE 52 U/L (12-78); ALBUMIN 2.8 G/DL (3.4-5.0); ALBUMIN/GLOBULIN RATIO 0.6 (1.1-1.5); ALKALINE PHOSPHATASE 97 IU/L (46-116); ANION GAP 6 (8-16); ASPARTATE AMINO TRANSFERASE 19 U/L (10-37); BILIRUBIN,TOTAL 0.3 MG/DL (0.1-1.0); BLOOD UREA NITROGEN 13 MG/DL (7-18); BUN/CREATININE RATIO 14.3 (10.0-20.0); C-REACTIVE PROTEIN 4.15 MG/DL (0.0-0.5); CALCIUM 9.7 MG/DL (8.5-10.1); CHLORIDE 101 MMOL/L (99-107); CREATININE 0.91 MG/DL (0.60-1.10); GLUCOSE 168 MG/DL (70-104); SODIUM 137 MMOL/L (135-145); TOTAL CARBON DIOXIDE 30.5 MMOL/L (24-32); TOTAL PROTEIN 7.4 G/DL (6.4-8.2); eGFR 89 ML/MIN
--- NOTE | 2022-12-25 06:39 | NUR ---
Problems reprioritized. Patient report given, questions answered & plan of care reviewed with RONAN CHAN. Addendum: 12/25/22 at 0639 by Aida Jackson RN Amended: Links added.
[2022-12-25 07:16] VITALS: BP 127/60
--- NOTE | 2022-12-25 07:17 | NUR ---
Patient in room [facility] 344. I have received report from Aida CHAN and had the opportunity to ask questions and assume patient care.
[2022-12-25] MEDS: JUVEN Smoothie Arginine/Glut./Ca2+Bmb (Juven 19.3pkt) 240ml cup PO SCH ×2 (07:56→17:37)
[2022-12-25] MEDS: nicotine 21mg patch - 24 hr TD SCH (08:00)
[2022-12-25] MEDS: thiamine 100mg tablet PO SCH (08:57)
[2022-12-25] MEDS: heparin, porcine 5000 units/ml vial SQ SCH ×2 (08:57→20:30)
[2022-12-25] MEDS: multivitamins, therapeutics tablet PO SCH (08:57)
[2022-12-25] MEDS: metoprolol succinate 25mg (24-HOUR) SR. Tablet PO SCH (08:57)
[2022-12-25] MEDS: folic acid 1mg tablet PO SCH (08:57)
[2022-12-25] MEDS: lisinopril 20mg tablet PO SCH ×2 (08:58→20:30)
[2022-12-25] MEDS: insulin Lispro (HumaLOG) vial - multi-dose SQ SCH ×2 (09:04→19:02)
--- NOTE | 2022-12-25 10:00 | NUR ---
Reassessment: PO intake fluctuates however overall pt eating well, documented with average 73% PO intake of meals since 12/20 while receiving double protein TID. Pt to be receiving a William smoothie BIDBD and Ensure High Protein as of 12/21. Per EMR pt initially refused William smoothie however with 100% PO intake of ONS at breakfast this morning and with 100% PO intake of Ensure High Protein. Overall pt meeting estimated nutrient needs. LBM 12/24. No further nutrition intervention implemented at this time. Will continue to follow. Recommendations: 1. Continue carb controlled diet; double protein TIDWM 2. [place] William smoothie BIDBD and Ensure High Protein WL 3. Continue routine Thiamine, Folic acid, and MVI for EtOH hx 4. Bowel care per rx 5. Scaled wt this admit; subsequent weekly scaled wts Addendum: 12/25/22 at [address] Amended: Links added.
[2022-12-25 12:10] VITALS: BP 125/75
[2022-12-25] MEDS: lactose-reduced food (Ensure High Protein) 237ml bottle PO SCH (12:37)
[2022-12-25 18:17] VITALS: BP 125/83
[2022-12-25] MEDS: gabapentin 300mg capsule PO SCH (20:29)
[2022-12-25] MEDS: insulin glargine (Lantus) pen - multi-dose SQ SCH (20:38)
[2022-12-25 23:47] VITALS: BP 105/59
[2022-12-26] MEDS: LORazepam 0.5 MG tablet PO PRN ×2 (05:09→16:47)
[2022-12-26] MEDS: oxyCODONE IR 5mg (immed. release) tablet PO PRN ×4 (05:10→23:01)
--- NOTE | 2022-12-26 06:08 | NUR ---
Problems reprioritized. Patient report given, questions answered & plan of care reviewed with Libia MELCHOR.
[2022-12-26] MEDS: nicotine 21mg patch - 24 hr TD SCH (08:00)
[2022-12-26] MEDS: multivitamins, therapeutics tablet PO SCH (08:04)
[2022-12-26] MEDS: thiamine 100mg tablet PO SCH (08:04)
[2022-12-26] MEDS: metoprolol succinate 25mg (24-HOUR) SR. Tablet PO SCH (08:04)
[2022-12-26] MEDS: folic acid 1mg tablet PO SCH (08:04)
[2022-12-26] MEDS: heparin, porcine 5000 units/ml vial SQ SCH ×2 (08:06→20:37)
[2022-12-26] MEDS: lisinopril 20mg tablet PO SCH ×2 (08:07→20:36)
[2022-12-26] MEDS: insulin Lispro (HumaLOG) vial - multi-dose SQ SCH ×2 (08:24→19:22)
[2022-12-26] MEDS: JUVEN Smoothie Arginine/Glut./Ca2+Bmb (Juven 19.3pkt) 240ml cup PO SCH ×2 (08:29→17:36)
[2022-12-26] MEDS: piperacillin/tazo 3.375gm/50ml 50 ML IV SCH ×3 (08:45→23:55)
[2022-12-26 11:05] VITALS: BP 134/93
[2022-12-26] MEDS: lactose-reduced food (Ensure High Protein) 237ml bottle PO SCH (13:03)
[2022-12-26 16:12] VITALS: BP 108/71
--- NOTE | 2022-12-26 17:52 | NUR ---
patient wound care to right foot completed. Pictures were not patient refused. Patient showered, walked with staff [address] Blood sugars continue at level 5. Tolerated IV zosyn with no adverse affevts from medications. VS rr even and unlabored. 02 > 92%
[2022-12-26 18:50] VITALS: BP 139/83
[2022-12-26] MEDS: gabapentin 300mg capsule PO SCH (20:36)
[2022-12-26 21:14] VITALS: BP 126/80
[2022-12-26 22:00] VITALS: BP 126/80
[2022-12-26] MEDS: insulin glargine (Lantus) pen - multi-dose SQ SCH (22:11)
[2022-12-26] MEDS: temazepam 15mg capsule PO PRN (23:01)
[2022-12-27] MEDS: oxyCODONE IR 5mg (immed. release) tablet PO PRN ×4 (02:53→23:23)
--- NOTE | 2022-12-27 06:13 | NUR ---
Problems reprioritized. Patient report given, questions answered & plan of care reviewed with Libia. Addendum: 12/27/22 at 0613 by Lenny Clement RN Amended: Links added.
--- NOTE | 2022-12-27 06:29 | NUR ---
Patient in room [facility]. I have received report from Jeovany CHAN and had the opportunity to ask questions and assume patient care.
[2022-12-27 06:55] VITALS: BP 120/81
[2022-12-27] MEDS: heparin, porcine 5000 units/ml vial SQ SCH ×2 (07:27→19:24)
[2022-12-27] MEDS: folic acid 1mg tablet PO SCH (07:28)
[2022-12-27] MEDS: multivitamins, therapeutics tablet PO SCH (07:28)
[2022-12-27] MEDS: thiamine 100mg tablet PO SCH (07:28)
[2022-12-27] MEDS: lisinopril 20mg tablet PO SCH ×2 (07:28→19:27)
[2022-12-27] MEDS: metoprolol succinate 25mg (24-HOUR) SR. Tablet PO SCH (07:28)
[2022-12-27] MEDS: LORazepam 0.5 MG tablet PO PRN ×2 (07:36→18:58)
[2022-12-27] MEDS: JUVEN Smoothie Arginine/Glut./Ca2+Bmb (Juven 19.3pkt) 240ml cup PO SCH ×2 (07:37→17:30)
[2022-12-27] MEDS: piperacillin/tazo 3.375gm/50ml 50 ML IV SCH ×3 (07:47→23:23)
[2022-12-27] MEDS: nicotine 21mg patch - 24 hr TD SCH (08:00)
[2022-12-27 10:00] VITALS: BP 122/70
[2022-12-27] MEDS: lactose-reduced food (Ensure High Protein) 237ml bottle PO SCH (12:47)
[2022-12-27] MEDS: insulin Lispro (HumaLOG) vial - multi-dose SQ SCH ×2 (13:13→18:56)
--- NOTE | 2022-12-27 14:25 | NUR ---
refused lunch ordered Roast beef sandwich at 1430. Addendum: 12/27/22 at 1426 by Libia Rogers LVN Amended: Links added.
--- NOTE | 2022-12-27 16:28 | NUR ---
patient wound care completed per orders. No c/o pain of pain or discomfort. All medications tolerated. With no ASE. Oxycodone given for pain once this shift. Venous ultrasound performed on both legs per MD orders r/t c/o swelling and pain. No new orders. All needs met by staff. All safety measures in place and call light and fresh water at bedside. Will continue to monitor.
--- NOTE | 2022-12-27 16:34 | NUR ---
Assessed patients wounds on left foot. Applied Betadine to toes. Coccyx dressing is intact and in place. WC will see patient tomorrow and provide nail care.
--- NOTE | 2022-12-27 17:30 | NUR ---
I have reviewed and agree with the interventions, assessments and documentation by Libia Aviles LVN.
[2022-12-27 18:40] VITALS: BP 123/74
[2022-12-27] MEDS: temazepam 15mg capsule PO PRN (21:35)
[2022-12-27] MEDS: gabapentin 300mg capsule PO SCH (21:35)
[2022-12-27] MEDS: insulin glargine (Lantus) pen - multi-dose SQ SCH (21:40)
[2022-12-27 22:00] VITALS: BP 120/77
[2022-12-28] MEDS: oxyCODONE IR 5mg (immed. release) tablet PO PRN ×4 (03:35→23:01)
--- NOTE | 2022-12-28 06:04 | NUR ---
Patient in room [facility]. I have received report from Jeovany CHAN and had the opportunity to ask questions and assume patient care.
[2022-12-28 06:05] VITALS: BP 116/62
[2022-12-28 06:12] VITALS: BP 116/62
--- NOTE | 2022-12-28 06:35 | NUR ---
Problems reprioritized. Patient report given, questions answered & plan of care reviewed with Libia. Addendum: 12/28/22 at 0635 by Lenny Clement RN Amended: Links added.
[2022-12-28] MEDS: piperacillin/tazo 3.375gm/50ml 50 ML IV SCH ×3 (07:09→23:02)
[2022-12-28] MEDS: thiamine 100mg tablet PO SCH (07:32)
[2022-12-28] MEDS: heparin, porcine 5000 units/ml vial SQ SCH ×2 (07:32→21:08)
[2022-12-28] MEDS: multivitamins, therapeutics tablet PO SCH (07:33)
[2022-12-28] MEDS: lisinopril 20mg tablet PO SCH ×2 (07:33→21:05)
[2022-12-28] MEDS: metoprolol succinate 25mg (24-HOUR) SR. Tablet PO SCH (07:33)
[2022-12-28] MEDS: nicotine 21mg patch - 24 hr TD SCH (07:33)
[2022-12-28] MEDS: folic acid 1mg tablet PO SCH (07:33)
[2022-12-28] MEDS: JUVEN Smoothie Arginine/Glut./Ca2+Bmb (Juven 19.3pkt) 240ml cup PO SCH ×2 (07:34→17:37)
[2022-12-28] MEDS: LORazepam 0.5 MG tablet PO PRN ×3 (08:33→23:01)
[2022-12-28] MEDS: insulin Lispro (HumaLOG) vial - multi-dose SQ SCH ×3 (08:35→19:05)
[2022-12-28 10:28] VITALS: BP 122/67
[2022-12-28] MEDS: lactose-reduced food (Ensure High Protein) 237ml bottle PO SCH (13:25)
--- NOTE | 2022-12-28 17:30 | NUR ---
I have reviewed and agree with interventions, assessments and documentation by Libia Aviles LVN.
[2022-12-28 18:00] VITALS: BP 125/74
--- NOTE | 2022-12-28 18:05 | NUR ---
Patient in room [facility]. I have received report from RUIZ Reza and had the opportunity to ask questions and assume patient care.
[2022-12-28] MEDS: gabapentin 300mg capsule PO SCH (21:08)
[2022-12-28] MEDS: temazepam 15mg capsule PO PRN (21:08)
[2022-12-28] MEDS: insulin glargine (Lantus) pen - multi-dose SQ SCH (21:23)
[2022-12-28 22:00] VITALS: BP 135/79
[2022-12-29] MEDS: oxyCODONE IR 5mg (immed. release) tablet PO PRN ×3 (03:27→20:15)
[2022-12-29 06:00] VITALS: BP 128/70
--- NOTE | 2022-12-29 06:30 | NUR ---
Patient in room [facility]. I have received report from DUSTIN Rodriguez and had the opportunity to ask questions and assume patient care.
--- NOTE | 2022-12-29 06:30 | NUR ---
Problems reprioritized. Patient report given, questions answered & plan of care reviewed with RUIZ Miles.
[2022-12-29 06:35] VITALS: BP 128/70
[2022-12-29] MEDS: piperacillin/tazo 3.375gm/50ml 50 ML IV SCH ×2 (07:11→15:35)
[2022-12-29] MEDS: JUVEN Smoothie Arginine/Glut./Ca2+Bmb (Juven 19.3pkt) 240ml cup PO SCH ×2 (07:30→17:30)
[2022-12-29] MEDS: lisinopril 20mg tablet PO SCH ×2 (07:39→20:16)
[2022-12-29] MEDS: folic acid 1mg tablet PO SCH (07:39)
[2022-12-29] MEDS: multivitamins, therapeutics tablet PO SCH (07:39)
[2022-12-29] MEDS: thiamine 100mg tablet PO SCH (07:39)
[2022-12-29] MEDS: metoprolol succinate 25mg (24-HOUR) SR. Tablet PO SCH (07:39)
[2022-12-29] MEDS: heparin, porcine 5000 units/ml vial SQ SCH ×2 (07:40→20:19)
[2022-12-29] MEDS: nicotine 21mg patch - 24 hr TD SCH (07:46)
[2022-12-29] MEDS: insulin Lispro (HumaLOG) vial - multi-dose SQ SCH ×3 (08:27→20:23)
[2022-12-29 11:00] VITALS: BP 137/79
--- NOTE | 2022-12-29 11:57 | NUR ---
DIABETIC FOOT CARE EDUCATION PROVIDED BY WOUND CARE * Wash your feet daily with lukewarm water and soap. * Dry your feet well, especially between the toes. * Keep the skin moisturized with lotion, but do not apply it between the toes. * Check your feet for blisters, cuts or sores. * Use an emery board to shape your toenails even with the ends of your toes. * Change daily into clean, soft socks or stockings, not too big or too small. * Keep your feet warm and dry. * Preferably wear special padded socks and shoes that fit well. * Never walk barefoot indoors or outdoors. * Examine your shoes everyday for cracks, scott, nails or anything that could hurt your feet. * Tell your doctor if you find any of these problems or have any concerns after examining your feet. Addendum: 12/29/22 at 1157 by Patricia Emery LVN Amended: Links added.
[2022-12-29] MEDS: lactose-reduced food (Ensure High Protein) 237ml bottle PO SCH (12:30)
[2022-12-29] MEDS: LORazepam 0.5 MG tablet PO PRN ×2 (13:19→21:43)
--- NOTE | 2022-12-29 17:30 | NUR ---
I have reviewed and agree with interventions, assessments and documentation by Ginger Monterroso LVN.
[2022-12-29 18:00] VITALS: BP 102/55
--- NOTE | 2022-12-29 18:06 | NUR ---
Problems reprioritized. Patient report given, questions answered & plan of care reviewed with DUSTIN Brown.
[2022-12-29] MEDS: gabapentin 300mg capsule PO SCH (20:16)
[2022-12-29] MEDS: temazepam 15mg capsule PO PRN (21:43)
[2022-12-29] MEDS: insulin glargine (Lantus) pen - multi-dose SQ SCH (21:49)
[2022-12-29 22:00] VITALS: BP 136/84
--- NOTE | 2022-12-29 22:00 | NUR ---
Student documentation: I have reviewed interventions, assessments performed and documented by Daria LAST [facility].
[2022-12-30] MEDS: oxyCODONE IR 5mg (immed. release) tablet PO PRN ×5 (00:32→20:57)
[2022-12-30] MEDS: piperacillin/tazo 3.375gm/50ml 50 ML IV SCH ×4 (00:32→23:51)
[2022-12-30 06:00] VITALS: BP 113/63
--- NOTE | 2022-12-30 06:13 | NUR ---
Problems reprioritized. Patient report given, questions answered & plan of care reviewed with RUIZ Miles.
--- NOTE | 2022-12-30 06:55 | NUR ---
Patient in room [facility]. I have received report from DUSTIN Rodriguez and had the opportunity to ask questions and assume patient care.
[2022-12-30] MEDS: JUVEN Smoothie Arginine/Glut./Ca2+Bmb (Juven 19.3pkt) 240ml cup PO SCH ×2 (07:30→17:30)
[2022-12-30] MEDS: heparin, porcine 5000 units/ml vial SQ SCH ×2 (07:31→20:53)
[2022-12-30] MEDS: lisinopril 20mg tablet PO SCH ×2 (07:32→20:56)
[2022-12-30] MEDS: metoprolol succinate 25mg (24-HOUR) SR. Tablet PO SCH (07:32)
[2022-12-30] MEDS: folic acid 1mg tablet PO SCH (07:32)
[2022-12-30] MEDS: thiamine 100mg tablet PO SCH (07:32)
[2022-12-30] MEDS: multivitamins, therapeutics tablet PO SCH (07:32)
[2022-12-30] MEDS: insulin Lispro (HumaLOG) vial - multi-dose SQ SCH ×3 (08:36→18:52)
[2022-12-30 10:00] VITALS: BP 104/61
[2022-12-30] MEDS: LORazepam 0.5 MG tablet PO PRN ×2 (10:14→23:51)
[2022-12-30] MEDS: lactose-reduced food (Ensure High Protein) 237ml bottle PO SCH (12:30)
[2022-12-30 18:00] VITALS: BP 110/65
[2022-12-30] MEDS: insulin glargine (Lantus) pen - multi-dose SQ SCH (20:52)
[2022-12-30] MEDS: gabapentin 300mg capsule PO SCH (20:56)
[2022-12-30 22:00] VITALS: BP 131/81
--- NOTE | 2022-12-31 01:56 | NUR ---
REVIEWED HIGH PRESSURE KETTLE OPERATOR ASSESSMENT AND IN AGREEMENT.
[2022-12-31 06:00] VITALS: BP 137/77
--- NOTE | 2022-12-31 06:25 | NUR ---
Problems reprioritized. Patient report given, questions answered & plan of care reviewed with DUSTIN Wen.
--- NOTE | 2022-12-31 06:48 | NUR ---
Patient in room [facility]. I have received report from Ginger CHAN and had the opportunity to ask questions and assume patient care. Pt is laying semi fowlers in bed, and is resting comfortably in bed. Pt declines c/o pain at this time. BLL, call light within reach, frequently used items in reach, frequent rounidng, advertising internship socks on. Will continue to monitor.
[2022-12-31] MEDS: JUVEN Smoothie Arginine/Glut./Ca2+Bmb (Juven 19.3pkt) 240ml cup PO SCH ×2 (07:30→17:30)
[2022-12-31 07:33] VITALS: BP 137/77
[2022-12-31] MEDS: insulin Lispro (HumaLOG) vial - multi-dose SQ SCH ×2 (09:07→13:44)
[2022-12-31] MEDS: heparin, porcine 5000 units/ml vial SQ SCH ×2 (09:10→20:43)
[2022-12-31] MEDS: multivitamins, therapeutics tablet PO SCH (09:14)
[2022-12-31] MEDS: thiamine 100mg tablet PO SCH (09:14)
[2022-12-31] MEDS: oxyCODONE IR 5mg (immed. release) tablet PO PRN ×4 (09:14→21:37)
[2022-12-31] MEDS: lisinopril 20mg tablet PO SCH ×2 (09:16→20:43)
[2022-12-31] MEDS: folic acid 1mg tablet PO SCH (09:17)
[2022-12-31] MEDS: metoprolol succinate 25mg (24-HOUR) SR. Tablet PO SCH (09:17)
[2022-12-31] MEDS: piperacillin/tazo 3.375gm/50ml 50 ML IV SCH ×3 (09:18→23:04)
--- NOTE | 2022-12-31 09:30 | NUR ---
Student documentation: I have reviewed and agree with all interventions, assessments performed and documented by Ector Gay student nurse with Nicolette Medina RN instructor. Addendum: 12/31/22 at 1009 by Sudha Gay STUDENT [facility] Student Medication Administration: For this medication-pass time frame, all medication were reviewed, dispensed, administered and documented per hospital policy by Ector Gay student nurse with Nicolette medina RN instructor.
[2022-12-31 10:00] VITALS: BP 120/73
[2022-12-31] MEDS: LORazepam 0.5 MG tablet PO PRN ×3 (10:27→22:59)
--- NOTE | 2022-12-31 10:31 | NUR ---
Student Medication Administration: For this medication-pass time frame, all medication were reviewed, dispensed, administered and documented per hospital policy by Ector Gay student nurse with Bettye Maier RN.
[2022-12-31 12:14] VITALS: BP 120/73
[2022-12-31] MEDS: lactose-reduced food (Ensure High Protein) 237ml bottle PO SCH (12:30)
--- NOTE | 2022-12-31 13:27 | NUR ---
Student Medication Administration: For this medication-pass time frame, all medication were reviewed, dispensed, administered and documented per hospital policy by Ector Gay student with Nicolette foley RN instructor.
--- NOTE | 2022-12-31 13:49 | NUR ---
Reassessment: PO intake continues to fluctuate, overall pt eating well with mostly 100% PO intake of meals though does occasionally go down to 100% PO intake of protein only. Pt documented with mostly 100% PO intake of ONS however documented to not be receiving ONS since 12/29. Per dietary pt is receiving ONS. LBM 12/31. No further nutrition intervention implemented at this time. Will continue to follow. Recommendations: 1. Continue carb controlled diet; double protein TIDWM 2. [place] William smoothie BIDBD and Ensure High Protein WL 3. Continue routine Thiamine, Folic acid, and MVI for EtOH hx 4. Bowel care per rx 5. Scaled wt this admit; subsequent weekly scaled wts Addendum: 12/31/22 at [address] Amended: Links added.
--- NOTE | 2022-12-31 14:59 | NUR ---
Performed wound care per doctors order. Dressing CDI, patient tolerated dressing change well. Nicolette Medina RN instructor at bedside.
--- NOTE | 2022-12-31 17:20 | NUR ---
Student Medication Administration: For this medication-pass time frame, all medication were reviewed, dispensed, administered and documented per hospital policy by Ector Gay student with Rocael Cohen.
[2022-12-31 18:00] VITALS: BP 134/85
--- NOTE | 2022-12-31 18:22 | NUR ---
Problems reprioritized. Patient report given, questions answered & plan of care reviewed with Kendal RN.
--- NOTE | 2022-12-31 19:32 | NUR ---
Student documentation: I have reviewed and agree with all interventions, assessments performed and documented by Juan Gay SN by Jackeline Medina RN Instructor.
[2022-12-31] MEDS: gabapentin 300mg capsule PO SCH (20:44)
[2022-12-31 22:00] VITALS: BP 126/71
[2022-12-31] MEDS: insulin glargine (Lantus) pen - multi-dose SQ SCH (23:03)
[2023-01-01] MEDS: temazepam 15mg capsule PO PRN (01:00)
[2023-01-01] MEDS: oxyCODONE IR 5mg (immed. release) tablet PO PRN ×6 (01:24→22:12)
[2023-01-01] MEDS: ondansetron/PF 4mg/2ml inj IV PRN ×2 (01:24→22:17)
--- NOTE | 2023-01-01 05:24 | NUR ---
Pt. is awake alert oriented multiple skin tattoos. Pt. 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 Dressing dry and intact. PICC line intact. Pt. c/o left foot pain medicated as ordered effective relief lasting about 3 hours. Pt. calls for pain med 1 hour prior to. Pt. is ambulatory to no c/o. Plan for transfer to Skilled facility for antibiotic therapy.
[2023-01-01 06:00] VITALS: BP 115/78
--- NOTE | 2023-01-01 06:10 | NUR ---
Patient in room [facility]. I have received report from Kendal RN and had the opportunity to ask questions and assume patient care.
[2023-01-01] MEDS: JUVEN Smoothie Arginine/Glut./Ca2+Bmb (Juven 19.3pkt) 240ml cup PO SCH ×2 (07:45→17:49)
[2023-01-01] MEDS: lisinopril 20mg tablet PO SCH ×2 (09:45→22:10)
[2023-01-01] MEDS: multivitamins, therapeutics tablet PO SCH (09:46)
[2023-01-01] MEDS: thiamine 100mg tablet PO SCH (09:46)
[2023-01-01] MEDS: folic acid 1mg tablet PO SCH (09:46)
[2023-01-01] MEDS: metoprolol succinate 25mg (24-HOUR) SR. Tablet PO SCH (09:46)
[2023-01-01] MEDS: heparin, porcine 5000 units/ml vial SQ SCH ×2 (09:58→22:11)
[2023-01-01 10:00] VITALS: BP 115/64
[2023-01-01] MEDS: piperacillin/tazo 3.375gm/50ml 50 ML IV SCH ×2 (10:03→16:47)
[2023-01-01] MEDS: insulin Lispro (HumaLOG) vial - multi-dose SQ SCH (10:16)
[2023-01-01] MEDS: LORazepam 0.5 MG tablet PO PRN ×2 (10:34→22:10)
[2023-01-01 11:34] LABS: BASOPHILS # (AUTO) 0.1 X10'3 (0-0.2); BASOPHILS % (AUTO) 0.8 % (0-1); EOSINOPHILS # (AUTO) 0.7 X10'3 (0-0.9); EOSINOPHILS % (AUTO) 7.9 % (0-6); HEMATOCRIT 35.4 % (42.0-52.0); HEMOGLOBIN 12.6 g/dl (14.0-17.9); LYMPHOCYTES # (AUTO) 1.7 X10'3 (1.1-4.8); MEAN CORPUSCULAR HEMOGLOBIN 31.5 PG (27.0-31.0); MEAN CORPUSCULAR HGB CONC 35.5 g/dL (33.0-36.5); MEAN CORPUSCULAR VOLUME 88.6 FL (78-98); MEAN PLATELET VOLUME 6.9 FL (7.4-10.4); MONOCYTES # (AUTO) 0.9 X10'3 (0-0.9); MONOCYTES % (AUTO) 9.2 % (2-12); NEUTROPHILS # (AUTO) 6.1 X10'3 (1.8-7.7); NEUTROPHILS % (AUTO) 64.1 % (42-75); PLATELET COUNT 296 X10'3 (140-440); RED BLOOD COUNT 3.99 X10'6 (4.70-6.10); RED CELL DISTRIBUTION WIDTH 12.8 % (11.5-14.5); WHITE BLOOD COUNT 9.5 X10'3 (4.5-11.0)
[2023-01-01 11:51] LABS: ALANINE AMINOTRANSFERASE 56 U/L (12-78); ALBUMIN 3.3 G/DL (3.4-5.0); ALBUMIN/GLOBULIN RATIO 0.7 (1.1-1.5); ALKALINE PHOSPHATASE 93 IU/L (46-116); ANION GAP 4 (8-16); ASPARTATE AMINO TRANSFERASE 25 U/L (10-37); BILIRUBIN,TOTAL 0.3 MG/DL (0.1-1.0); BLOOD UREA NITROGEN 20 MG/DL (7-18); BUN/CREATININE RATIO 20.2 (10.0-20.0); CALCIUM 9.8 MG/DL (8.5-10.1); CHLORIDE 101 MMOL/L (99-107); CREATININE 0.99 MG/DL (0.60-1.10); GLUCOSE 106 MG/DL (70-104); POTASSIUM 4.2 MMOL/L (3.5-5.1); SODIUM 135 MMOL/L (135-145); TOTAL CARBON DIOXIDE 29.7 MMOL/L (24-32); TOTAL PROTEIN 7.8 G/DL (6.4-8.2); eGFR 81 ML/MIN
[2023-01-01] MEDS: lactose-reduced food (Ensure High Protein) 237ml bottle PO SCH (12:35)
[2023-01-01 18:00] VITALS: BP 120/70
[2023-01-01 22:00] VITALS: BP 130/81
[2023-01-01] MEDS: gabapentin 300mg capsule PO SCH (22:10)
[2023-01-01] MEDS: insulin glargine (Lantus) pen - multi-dose SQ SCH (22:23)
[2023-01-02] MEDS: piperacillin/tazo 3.375gm/50ml 50 ML IV SCH ×4 (00:23→23:35)
[2023-01-02] MEDS: diphenhydrAMINE 25mg capsule PO PRN ×2 (00:39→19:08)
[2023-01-02] MEDS: oxyCODONE IR 5mg (immed. release) tablet PO PRN ×5 (02:11→20:58)
[2023-01-02 06:00] VITALS: BP 104/62
--- NOTE | 2023-01-02 06:34 | NUR ---
Patient in room [facility] 348. I have received report from Marlena and had the opportunity to ask questions and assume patient care.
--- NOTE | 2023-01-02 06:40 | NUR ---
Problems reprioritized. Patient report given, questions answered & plan of care reviewed with DUSTIN Benites.
[2023-01-02] MEDS: folic acid 1mg tablet PO SCH (07:42)
[2023-01-02] MEDS: multivitamins, therapeutics tablet PO SCH (07:42)
[2023-01-02] MEDS: thiamine 100mg tablet PO SCH (07:43)
[2023-01-02] MEDS: metoprolol succinate 25mg (24-HOUR) SR. Tablet PO SCH (07:43)
[2023-01-02] MEDS: lisinopril 20mg tablet PO SCH ×2 (07:45→20:58)
[2023-01-02] MEDS: heparin, porcine 5000 units/ml vial SQ SCH ×2 (07:46→20:58)
[2023-01-02] MEDS: insulin Lispro (HumaLOG) vial - multi-dose SQ SCH ×2 (09:05→19:02)
[2023-01-02] MEDS: LORazepam 0.5 MG tablet PO PRN ×2 (09:06→20:58)
[2023-01-02 10:00] VITALS: BP 105/65
[2023-01-02] MEDS: ondansetron/PF 4mg/2ml inj IV PRN (10:17)
--- NOTE | 2023-01-02 12:27 | NUR ---
Student documentation:Bruna licona [facility] have reviewed and agree with all interventions, medication administration per hospital policy, and assessments performed and documented by the student.
--- NOTE | 2023-01-02 18:00 | NUR ---
Patient in room [facility] 348. I have received report from SKYLER and had the opportunity to ask questions and assume patient care.
--- NOTE | 2023-01-02 18:01 | NUR ---
Problems reprioritized. Patient report given, questions answered & plan of care reviewed with Ca.
[2023-01-02 19:00] VITALS: BP 103/54
[2023-01-02 20:37] VITALS: BP 130/75
[2023-01-02] MEDS: insulin glargine (Lantus) pen - multi-dose SQ SCH (20:55)
[2023-01-02] MEDS: gabapentin 300mg capsule PO SCH (20:57)
[2023-01-02 23:00] VITALS: BP 109/68
[2023-01-03] MEDS: oxyCODONE IR 5mg (immed. release) tablet PO PRN ×5 (00:42→23:57)
[2023-01-03 06:00] VITALS: BP 121/75
--- NOTE | 2023-01-03 06:38 | NUR ---
Problems reprioritized. Patient report given, questions answered & plan of care reviewed with TRANG.
--- NOTE | 2023-01-03 06:47 | NUR ---
Patient in room [facility] 348. I have received report from DUSTIN Corrales and had the opportunity to ask questions and assume patient care.
[2023-01-03] MEDS: folic acid 1mg tablet PO SCH (08:07)
[2023-01-03] MEDS: lisinopril 20mg tablet PO SCH ×2 (08:07→20:06)
[2023-01-03] MEDS: thiamine 100mg tablet PO SCH (08:07)
[2023-01-03] MEDS: multivitamins, therapeutics tablet PO SCH (08:07)
[2023-01-03] MEDS: metoprolol succinate 25mg (24-HOUR) SR. Tablet PO SCH (08:07)
[2023-01-03] MEDS: heparin, porcine 5000 units/ml vial SQ SCH ×2 (08:09→20:06)
[2023-01-03] MEDS: insulin Lispro (HumaLOG) vial - multi-dose SQ SCH ×3 (08:15→20:01)
[2023-01-03] MEDS: ondansetron/PF 4mg/2ml inj IV PRN (08:17)
[2023-01-03] MEDS: piperacillin/tazo 3.375gm/50ml 50 ML IV SCH ×3 (08:18→23:53)
[2023-01-03 11:00] VITALS: BP 118/76
--- NOTE | 2023-01-03 13:35 | NUR ---
TOBACCO WETTER documentation: I have reviewed and agree with all interventions, assessments performed and documented by Velasquez MELCHOR II.
[2023-01-03] MEDS: diphenhydrAMINE 25mg capsule PO PRN (15:09)
[2023-01-03 18:00] VITALS: BP 117/67
--- NOTE | 2023-01-03 18:46 | NUR ---
Problems reprioritized. Patient report given, questions answered & plan of care reviewed with DUSTIN Pierce.
[2023-01-03] MEDS: LORazepam 0.5 MG tablet PO PRN (20:06)
[2023-01-03] MEDS: gabapentin 300mg capsule PO SCH (21:45)
[2023-01-03] MEDS: insulin glargine (Lantus) pen - multi-dose SQ SCH (21:45)
[2023-01-03 22:00] VITALS: BP 118/72
[2023-01-04 06:00] VITALS: BP 120/78
--- NOTE | 2023-01-04 06:08 | NUR ---
Problems reprioritized. Patient report given, questions answered & plan of care reviewed with DUSTIN GIANG.
[2023-01-04] MEDS: metoprolol succinate 25mg (24-HOUR) SR. Tablet PO SCH (08:04)
[2023-01-04] MEDS: LORazepam 0.5 MG tablet PO PRN ×2 (08:05→21:37)
[2023-01-04] MEDS: lisinopril 20mg tablet PO SCH ×2 (08:05→19:45)
[2023-01-04] MEDS: folic acid 1mg tablet PO SCH (08:05)
[2023-01-04] MEDS: multivitamins, therapeutics tablet PO SCH (08:05)
[2023-01-04] MEDS: heparin, porcine 5000 units/ml vial SQ SCH ×2 (08:09→20:00)
[2023-01-04] MEDS: thiamine 100mg tablet PO SCH (08:12)
[2023-01-04] MEDS: insulin Lispro (HumaLOG) vial - multi-dose SQ SCH ×3 (08:17→19:45)
[2023-01-04 10:00] VITALS: BP 137/112
[2023-01-04] MEDS: piperacillin/tazo 3.375gm/50ml 50 ML IV SCH ×2 (10:04→17:26)
[2023-01-04] MEDS: oxyCODONE IR 5mg (immed. release) tablet PO PRN ×2 (10:53→19:49)
[2023-01-04] MEDS: ondansetron/PF 4mg/2ml inj IV PRN ×2 (10:55→19:49)
[2023-01-04 14:01] VITALS: BP 103/63
--- NOTE | 2023-01-04 14:20 | NUR ---
FINISH FILER documentation: I have reviewed and agree with all interventions, assessments performed and documented by SHAGUFTA MELCHOR II.
[2023-01-04 18:00] VITALS: BP 131/69
--- NOTE | 2023-01-04 18:10 | NUR ---
Problems reprioritized. Patient report given, questions answered & plan of care reviewed with Kari foy.
[2023-01-04 19:45] VITALS: BP 106/61
[2023-01-04] MEDS: insulin glargine (Lantus) pen - multi-dose SQ SCH (21:35)
[2023-01-04] MEDS: gabapentin 300mg capsule PO SCH (21:36)
[2023-01-04 23:00] VITALS: BP 129/73
[2023-01-05] MEDS: piperacillin/tazo 3.375gm/50ml 50 ML IV SCH ×3 (01:26→16:35)
--- NOTE | 2023-01-05 06:47 | NUR ---
Patient in room [facility] 348. I have received report from CHANCE CHAN and had the opportunity to ask questions and assume patient care.
--- NOTE | 2023-01-05 06:51 | NUR ---
Problems reprioritized. Patient report given, questions answered & plan of care reviewed with DUSTIN CHI.
[2023-01-05] MEDS: heparin, porcine 5000 units/ml vial SQ SCH ×2 (07:59→20:00)
[2023-01-05] MEDS: oxyCODONE IR 5mg (immed. release) tablet PO PRN ×3 (08:02→21:58)
[2023-01-05] MEDS: multivitamins, therapeutics tablet PO SCH (08:04)
[2023-01-05] MEDS: metoprolol succinate 25mg (24-HOUR) SR. Tablet PO SCH (08:04)
[2023-01-05] MEDS: thiamine 100mg tablet PO SCH (08:04)
[2023-01-05] MEDS: folic acid 1mg tablet PO SCH (08:04)
[2023-01-05] MEDS: lisinopril 20mg tablet PO SCH ×2 (08:04→19:57)
[2023-01-05 08:09] VITALS: BP 118/71
[2023-01-05] MEDS: LORazepam 0.5 MG tablet PO PRN ×2 (08:23→19:57)
[2023-01-05] MEDS: insulin Lispro (HumaLOG) vial - multi-dose SQ SCH ×3 (08:29→19:56)
[2023-01-05 10:00] VITALS: BP 100/52
[2023-01-05 18:00] VITALS: BP 112/78
--- NOTE | 2023-01-05 18:06 | NUR ---
uneventful day dressing changed wound looking clean and dry . up and about in room. medicated x2 for pain with good result. Report given to Kari CHAN
[2023-01-05 19:55] VITALS: BP 116/66
[2023-01-05] MEDS: gabapentin 300mg capsule PO SCH (19:58)
[2023-01-05] MEDS: insulin glargine (Lantus) pen - multi-dose SQ SCH (21:57)
[2023-01-05 22:02] VITALS: BP 119/77
--- NOTE | 2023-01-05 22:39 | NUR ---
Student documentation: I have reviewed interventions, assessments performed and documented by [facility].
--- NOTE | 2023-01-05 22:53 | NUR ---
Unable to administer subcutaneous heparin patient does not have current labs.
[2023-01-06] MEDS: piperacillin/tazo 3.375gm/50ml 50 ML IV SCH ×3 (00:14→16:13)
[2023-01-06] MEDS: temazepam 15mg capsule PO PRN (00:14)
--- NOTE | 2023-01-06 06:26 | NUR ---
Problems reprioritized. Patient report given, questions answered & plan of care reviewed with RONAN. DUSTIN.
[2023-01-06 07:02] VITALS: BP 142/65
--- NOTE | 2023-01-06 07:04 | NUR ---
Patient in room [facility] 348. I have received report from Kari CHAN and had the opportunity to ask questions and assume patient care.
[2023-01-06] MEDS: heparin, porcine 5000 units/ml vial SQ SCH ×2 (08:00→20:00)
[2023-01-06] MEDS: thiamine 100mg tablet PO SCH (08:03)
[2023-01-06] MEDS: folic acid 1mg tablet PO SCH (08:03)
[2023-01-06] MEDS: lisinopril 20mg tablet PO SCH ×2 (08:04→20:56)
[2023-01-06] MEDS: metoprolol succinate 25mg (24-HOUR) SR. Tablet PO SCH (08:04)
[2023-01-06] MEDS: multivitamins, therapeutics tablet PO SCH (08:11)
[2023-01-06] MEDS: oxyCODONE IR 5mg (immed. release) tablet PO PRN ×2 (09:00→20:53)
[2023-01-06] MEDS: insulin Lispro (HumaLOG) vial - multi-dose SQ SCH ×2 (09:04→13:34)
--- NOTE | 2023-01-06 09:48 | NUR ---
Reassessment: Pt continues eating well, documented with mostly 100% PO intake since 12/31 on CHO controlled diet while receiving double protein TID meeting 98% estimated energy needs and 100% estimated protein needs. Noted pt had been documented to be refusing ONS since 12/29 and both were discontinued 01/01. LBM 01/04. No further nutrition intervention implemented at this time. Will continue to follow. Recommendations: 1. Continue carb controlled diet; double protein TIDWM 2. Continue routine Thiamine, Folic acid, and MVI for EtOH hx 3. Bowel care per rx 4. Scaled wt this admit; subsequent weekly scaled wts Addendum: 01/06/23 at [address] Amended: Links added.
[2023-01-06] MEDS: LORazepam 0.5 MG tablet PO PRN ×2 (11:14→20:55)
[2023-01-06] MEDS: ondansetron/PF 4mg/2ml inj IV PRN ×2 (11:14→21:03)
[2023-01-06 12:00] VITALS: BP 107/69
[2023-01-06] MEDS ORDERED: gabapentin 300mg capsule PO ONE (13:14)
[2023-01-06 17:00] VITALS: BP 110/68
--- NOTE | 2023-01-06 18:36 | NUR ---
Problems reprioritized. Patient report given, questions answered & plan of care reviewed with Aida CHAN.
[2023-01-06 20:30] VITALS: BP 118/68
[2023-01-06] MEDS: gabapentin 300mg capsule PO SCH (20:54)
[2023-01-06] MEDS: insulin glargine (Lantus) pen - multi-dose SQ SCH (20:56)
[2023-01-06 22:00] VITALS: BP 118/68
[2023-01-07] MEDS: piperacillin/tazo 3.375gm/50ml 50 ML IV SCH ×4 (00:17→23:43)
[2023-01-07] MEDS: temazepam 15mg capsule PO PRN ×2 (00:25→23:44)
--- NOTE | 2023-01-07 04:33 | NUR ---
Student Medication Administration: For this medication-pass time frame, all medication were reviewed, dispensed, administered and documented per hospital policy.
--- NOTE | 2023-01-07 04:33 | NUR ---
Student documentation: I have reviewed and agree with all interventions, assessments performed and documented by Ang Caldwell.
[2023-01-07] MEDS: heparin, porcine 5000 units/ml vial SQ SCH ×2 (07:24→20:42)
[2023-01-07] MEDS: thiamine 100mg tablet PO SCH (07:25)
[2023-01-07] MEDS: gabapentin 300mg capsule PO SCH ×3 (07:26→20:24)
[2023-01-07 07:30] VITALS: BP 115/79
[2023-01-07] MEDS: folic acid 1mg tablet PO SCH (07:37)
[2023-01-07] MEDS: metoprolol succinate 25mg (24-HOUR) SR. Tablet PO SCH (07:38)
[2023-01-07] MEDS: multivitamins, therapeutics tablet PO SCH (07:38)
[2023-01-07] MEDS: lisinopril 20mg tablet PO SCH ×2 (07:38→20:39)
[2023-01-07] MEDS: LORazepam 0.5 MG tablet PO PRN ×2 (09:11→20:23)
[2023-01-07] MEDS: insulin Lispro (HumaLOG) vial - multi-dose SQ SCH ×3 (09:16→19:07)
[2023-01-07 12:00] VITALS: BP 118/78
[2023-01-07] MEDS: oxyCODONE IR 5mg (immed. release) tablet PO PRN ×2 (12:34→20:26)
[2023-01-07 18:00] VITALS: BP 132/86
--- NOTE | 2023-01-07 18:16 | NUR ---
Problems reprioritized. Patient report given, questions answered & plan of care reviewed with DUSTIN Parra.
[2023-01-07] MEDS: insulin glargine (Lantus) pen - multi-dose SQ SCH (20:42)
[2023-01-07 22:00] VITALS: BP 118/75
--- NOTE | 2023-01-08 00:42 | NUR ---
Student Medication Administration: For this medication-pass time frame, all medication were reviewed, dispensed, administered and documented per hospital policy.
--- NOTE | 2023-01-08 00:42 | NUR ---
Student documentation: I have reviewed and agree with all interventions, assessments performed and documented by Ang MELCHOR student.
[2023-01-08 05:00] VITALS: BP 121/83
--- NOTE | 2023-01-08 06:13 | NUR ---
Problems reprioritized. Patient report given, questions answered & plan of care reviewed with Katia CHAN. Addendum: 01/08/23 at 0615 by Aida Jackson RN Amended: Links added.
[2023-01-08] MEDS: gabapentin 300mg capsule PO SCH ×3 (07:36→20:40)
[2023-01-08] MEDS: metoprolol succinate 25mg (24-HOUR) SR. Tablet PO SCH (07:36)
[2023-01-08] MEDS: folic acid 1mg tablet PO SCH (07:36)
[2023-01-08] MEDS: multivitamins, therapeutics tablet PO SCH (07:37)
[2023-01-08] MEDS: thiamine 100mg tablet PO SCH (07:37)
[2023-01-08] MEDS: oxyCODONE IR 5mg (immed. release) tablet PO PRN ×3 (07:37→20:40)
[2023-01-08] MEDS: piperacillin/tazo 3.375gm/50ml 50 ML IV SCH ×3 (07:38→23:13)
[2023-01-08] MEDS: heparin, porcine 5000 units/ml vial SQ SCH ×2 (07:38→19:08)
[2023-01-08] MEDS: LORazepam 0.5 MG tablet PO PRN ×2 (09:42→20:40)
[2023-01-08 09:46] VITALS: BP 111/68
[2023-01-08] MEDS: lisinopril 20mg tablet PO SCH ×2 (09:48→19:07)
[2023-01-08] MEDS: insulin Lispro (HumaLOG) vial - multi-dose SQ SCH ×3 (09:54→19:10)
[2023-01-08 10:00] VITALS: BP 116/83
--- NOTE | 2023-01-08 16:26 | NUR ---
PAGER ID: [phone] MESSAGE: Devon Fong [id number] Pt. requesting 24mg nicotine patch please. Thank you. Katia [phone]
[2023-01-08 18:00] VITALS: BP 119/81
--- NOTE | 2023-01-08 18:20 | NUR ---
Report given to Aida CHAN.
[2023-01-08] MEDS: nicotine 21mg patch - 24 hr TD SCH (19:08)
[2023-01-08] MEDS: insulin glargine (Lantus) pen - multi-dose SQ SCH (20:46)
[2023-01-08 22:00] VITALS: BP 122/83
[2023-01-08] MEDS: diphenhydrAMINE 25mg capsule PO PRN (23:13)
--- NOTE | 2023-01-09 06:33 | NUR ---
Problems reprioritized. Patient report given, questions answered & plan of care reviewed with Naty CHAN. Addendum: 01/09/23 at 0634 by Aida Jackson RN Amended: Links added.
[2023-01-09] MEDS: insulin Lispro (HumaLOG) vial - multi-dose SQ SCH ×2 (08:48→19:36)
[2023-01-09] MEDS: heparin, porcine 5000 units/ml vial SQ SCH ×2 (08:54→19:37)
[2023-01-09] MEDS: oxyCODONE IR 5mg (immed. release) tablet PO PRN ×2 (08:55→21:45)
[2023-01-09] MEDS: metoprolol succinate 25mg (24-HOUR) SR. Tablet PO SCH (08:56)
[2023-01-09] MEDS: multivitamins, therapeutics tablet PO SCH (08:56)
[2023-01-09] MEDS: folic acid 1mg tablet PO SCH (08:56)
[2023-01-09] MEDS: thiamine 100mg tablet PO SCH (08:56)
[2023-01-09] MEDS: piperacillin/tazo 3.375gm/50ml 50 ML IV SCH ×3 (08:58→23:59)
[2023-01-09] MEDS: gabapentin 300mg capsule PO SCH ×3 (08:58→21:45)
[2023-01-09] MEDS: lisinopril 20mg tablet PO SCH ×2 (09:02→20:02)
[2023-01-09] MEDS: nicotine 21mg patch - 24 hr TD SCH (09:07)
[2023-01-09 09:12] VITALS: BP 112/72
[2023-01-09 10:00] VITALS: BP 124/77
[2023-01-09] MEDS: LORazepam 0.5 MG tablet PO PRN ×2 (11:07→21:45)
[2023-01-09 18:00] VITALS: BP 108/64
[2023-01-09] MEDS: insulin glargine (Lantus) pen - multi-dose SQ SCH (22:00)
--- NOTE | 2023-01-10 | NUR ---
Patient sleeping comfortably and would not like to be woken up for vitals while sleeping.
[2023-01-10] MEDS: temazepam 15mg capsule PO PRN ×2 (00:03→23:18)
[2023-01-10] MEDS: acetaminophen 325mg tablet PO PRN (00:03)
--- NOTE | 2023-01-10 01:20 | NUR ---
Patient in room [facility] 348. I have received report from SKYLER and had the opportunity to ask questions and assume patient care.
[2023-01-10] MEDS: oxyCODONE IR 5mg (immed. release) tablet PO PRN ×3 (03:34→21:14)
[2023-01-10 06:00] VITALS: BP 110/70
--- NOTE | 2023-01-10 06:38 | NUR ---
Problems reprioritized. Patient report given, questions answered & plan of care reviewed with
--- NOTE | 2023-01-10 07:02 | NUR ---
Patient in room [facility] 348. I have received report from finn foy and had the opportunity to ask questions and assume patient care.
[2023-01-10] MEDS: thiamine 100mg tablet PO SCH (07:47)
[2023-01-10] MEDS: piperacillin/tazo 3.375gm/50ml 50 ML IV SCH ×3 (07:47→23:16)
[2023-01-10] MEDS: multivitamins, therapeutics tablet PO SCH (07:47)
[2023-01-10] MEDS: metoprolol succinate 25mg (24-HOUR) SR. Tablet PO SCH (07:47)
[2023-01-10] MEDS: lisinopril 20mg tablet PO SCH ×2 (07:48→21:14)
[2023-01-10] MEDS: folic acid 1mg tablet PO SCH (07:49)
[2023-01-10] MEDS: gabapentin 300mg capsule PO SCH ×3 (07:49→21:14)
[2023-01-10] MEDS: nicotine 21mg patch - 24 hr TD SCH (07:49)
[2023-01-10] MEDS: heparin, porcine 5000 units/ml vial SQ SCH ×2 (08:00→20:00)
[2023-01-10] MEDS: insulin Lispro (HumaLOG) vial - multi-dose SQ SCH ×3 (09:11→19:21)
[2023-01-10] MEDS: LORazepam 0.5 MG tablet PO PRN ×2 (09:12→21:14)
[2023-01-10 10:00] VITALS: BP 104/68
--- NOTE | 2023-01-10 12:29 | NUR ---
Patient removed nicotine patch stated that he felt it made him anxious. was given ativan this am for anxiety. present. will continue to monitor
--- NOTE | 2023-01-10 18:17 | NUR ---
Problems reprioritized. Patient report given, questions answered & plan of care reviewed with Savanna CHAN.
--- NOTE | 2023-01-10 18:30 | NUR ---
Patient in room [facility] 348. I have received report from ALON and had the opportunity to ask questions and assume patient care.
[2023-01-10 19:00] VITALS: BP 117/79
[2023-01-10] MEDS: insulin glargine (Lantus) pen - multi-dose SQ SCH (21:11)
[2023-01-10 22:00] VITALS: BP 116/71
[2023-01-11] MEDS: oxyCODONE IR 5mg (immed. release) tablet PO PRN ×4 (03:09→20:54)
--- NOTE | 2023-01-11 06:20 | NUR ---
Patient in room [facility] 348. I have received report from Savanna CHAN and had the opportunity to ask questions and assume patient care.
--- NOTE | 2023-01-11 06:34 | NUR ---
Problems reprioritized. Patient report given, questions answered & plan of care reviewed with
[2023-01-11 07:12] VITALS: BP 120/76
[2023-01-11] MEDS: LORazepam 0.5 MG tablet PO PRN ×2 (07:33→20:53)
[2023-01-11] MEDS: multivitamins, therapeutics tablet PO SCH (07:33)
[2023-01-11] MEDS: lisinopril 20mg tablet PO SCH ×2 (07:33→20:54)
[2023-01-11] MEDS: folic acid 1mg tablet PO SCH (07:33)
[2023-01-11] MEDS: metoprolol succinate 25mg (24-HOUR) SR. Tablet PO SCH (07:33)
[2023-01-11] MEDS: thiamine 100mg tablet PO SCH (07:33)
[2023-01-11] MEDS: gabapentin 300mg capsule PO SCH ×3 (07:34→20:53)
[2023-01-11] MEDS: piperacillin/tazo 3.375gm/50ml 50 ML IV SCH ×2 (07:34→16:49)
[2023-01-11] MEDS: heparin, porcine 5000 units/ml vial SQ SCH (08:00)
[2023-01-11] MEDS: nicotine 21mg patch - 24 hr TD SCH (08:00)
[2023-01-11] MEDS: insulin Lispro (HumaLOG) vial - multi-dose SQ SCH ×3 (09:28→19:27)
[2023-01-11] MEDS: insulin glargine (Lantus) pen - multi-dose SQ SCH (21:03)
[2023-01-11 22:00] VITALS: BP 106/62
[2023-01-12] MEDS: piperacillin/tazo 3.375gm/50ml 50 ML IV SCH ×4 (00:43→23:49)
[2023-01-12] MEDS: temazepam 15mg capsule PO PRN (03:39)
--- NOTE | 2023-01-12 04:41 | NUR ---
oxy given for pain x2,ativan for anxiety with good effect . patient able to relax but not sleep. Restoril given , patient appears to be sleeping at this time. Dressing changed. will continue to monitor
--- NOTE | 2023-01-12 06:02 | NUR ---
Problems reprioritized. Patient report given, questions answered & plan of care reviewed with Marla CHAN.
--- NOTE | 2023-01-12 06:58 | NUR ---
Patient in room [facility] 348. I have received report from Esperanza CHAN and had the opportunity to ask questions and assume patient care.
[2023-01-12 07:14] VITALS: BP 124/62
[2023-01-12] MEDS: gabapentin 300mg capsule PO SCH ×3 (07:53→22:04)
[2023-01-12] MEDS: multivitamins, therapeutics tablet PO SCH (07:53)
[2023-01-12] MEDS: thiamine 100mg tablet PO SCH (07:53)
[2023-01-12] MEDS: lisinopril 20mg tablet PO SCH ×2 (07:54→19:53)
[2023-01-12] MEDS: metoprolol succinate 25mg (24-HOUR) SR. Tablet PO SCH (07:54)
[2023-01-12] MEDS: folic acid 1mg tablet PO SCH (07:54)
[2023-01-12] MEDS: LORazepam 0.5 MG tablet PO PRN ×2 (09:18→22:10)
[2023-01-12] MEDS: oxyCODONE IR 5mg (immed. release) tablet PO PRN ×2 (09:18→19:53)
[2023-01-12] MEDS: insulin Lispro (HumaLOG) vial - multi-dose SQ SCH ×2 (09:22→19:58)
[2023-01-12 11:00] VITALS: BP 118/79
--- NOTE | 2023-01-12 11:50 | NUR ---
F/u 01/12: Pt continues eating well, ~100% avg CHO controlled diet while receiving double protein TID meeting 98% estimated energy needs and 100% estimated protein needs. LBM 01/11 per EMR. No further nutrition intervention implemented at this time. Will continue to follow. Recommendations: 1. Continue carb controlled diet; double protein TIDWM 2. Continue routine Thiamine, Folic acid, and MVI for EtOH hx 3. Bowel care per rx 4. Scaled wt this admit; subsequent weekly scaled wts Addendum: 01/12/23 at [address] Amended: Links added.
[2023-01-12 18:00] VITALS: BP 125/77
--- NOTE | 2023-01-12 18:15 | NUR ---
Patient in room [facility] 348. I have received report from DUSTIN Gutiérrez and had the opportunity to ask questions and assume patient care.
--- NOTE | 2023-01-12 18:20 | NUR ---
Problems reprioritized. Patient report given, questions answered & plan of care reviewed with Jennifer CHAN.
[2023-01-12 22:00] VITALS: BP 128/70
[2023-01-12] MEDS: insulin glargine (Lantus) pen - multi-dose SQ SCH (22:10)
[2023-01-13] MEDS: oxyCODONE IR 5mg (immed. release) tablet PO PRN ×3 (04:10→19:44)
--- NOTE | 2023-01-13 06:33 | NUR ---
Problems reprioritized. Patient report given, questions answered & plan of care reviewed with DUSTIN Joshua.
--- NOTE | 2023-01-13 07:06 | NUR ---
Patient in room [facility] 348. I have received report from LYN CHAN and had the opportunity to ask questions and assume patient care.
[2023-01-13 07:11] VITALS: BP 108/61
[2023-01-13] MEDS: multivitamins, therapeutics tablet PO SCH (07:27)
[2023-01-13] MEDS: thiamine 100mg tablet PO SCH (07:28)
[2023-01-13] MEDS: folic acid 1mg tablet PO SCH (07:28)
[2023-01-13] MEDS: lisinopril 20mg tablet PO SCH ×2 (07:28→19:43)
[2023-01-13] MEDS: piperacillin/tazo 3.375gm/50ml 50 ML IV SCH ×2 (07:28→16:21)
[2023-01-13] MEDS: gabapentin 300mg capsule PO SCH ×3 (07:28→21:30)
[2023-01-13] MEDS: metoprolol succinate 25mg (24-HOUR) SR. Tablet PO SCH (07:28)
[2023-01-13] MEDS: LORazepam 0.5 MG tablet PO PRN ×2 (09:02→21:30)
[2023-01-13] MEDS: insulin Lispro (HumaLOG) vial - multi-dose SQ SCH ×3 (09:06→19:48)
[2023-01-13 11:00] VITALS: BP 124/79
[2023-01-13] MEDS ORDERED: [UNRECOGNIZED DRUG - CODE] (11:28)
[2023-01-13] MEDS ORDERED: GABA300C PO (11:49)
[2023-01-13] MEDS ORDERED: METO-395 PO (11:49)
[2023-01-13] MEDS ORDERED: METF-1203 PO (11:49)
[2023-01-13] MEDS ORDERED: gabapentin capsule PO (11:49)
[2023-01-13] MEDS ORDERED: GLIP5TAB13 PO (11:49)
[2023-01-13] MEDS ORDERED: LISI20TA28 PO (11:49)
[2023-01-13] MEDS: diphenhydrAMINE 25mg capsule PO PRN (13:33)
[2023-01-13 18:00] VITALS: BP 121/77
--- NOTE | 2023-01-13 18:05 | NUR ---
Patient in room [facility] 348. I have received report from DUSTIN Joshua and had the opportunity to ask questions and assume patient care.
--- NOTE | 2023-01-13 18:19 | NUR ---
Problems reprioritized. Patient report given, questions answered & plan of care reviewed with LYN CHAN.
[2023-01-13] MEDS: insulin glargine (Lantus) pen - multi-dose SQ SCH (21:36)
[2023-01-13 22:00] VITALS: BP 128/94
[2023-01-14] MEDS: oxyCODONE IR 5mg (immed. release) tablet PO PRN (03:45)
[2023-01-14] MEDS: piperacillin/tazo 3.375gm/50ml 50 ML IV SCH ×2 (06:16)
--- NOTE | 2023-01-14 06:46 | NUR ---
Patient in room [facility] 348. I have received report from Jennifer CHAN and had the opportunity to ask questions and assume patient care.
--- NOTE | 2023-01-14 06:50 | NUR ---
Problems reprioritized. Patient report given, questions answered & plan of care reviewed with DUSTIN Gutiérrez.
[2023-01-14 07:17] VITALS: BP 109/64
[2023-01-14] MEDS: metoprolol succinate 25mg (24-HOUR) SR. Tablet PO SCH (07:37)
[2023-01-14] MEDS: gabapentin 300mg capsule PO SCH (07:37)
[2023-01-14] MEDS: folic acid 1mg tablet PO SCH (07:37)
[2023-01-14] MEDS: thiamine 100mg tablet PO SCH (07:37)
[2023-01-14] MEDS: LORazepam 0.5 MG tablet PO PRN (07:37)
[2023-01-14] MEDS: multivitamins, therapeutics tablet PO SCH (07:37)
[2023-01-14 07:38] VITALS: BP_SYST 109
[2023-01-14] MEDS: lisinopril 20mg tablet PO SCH (07:38)
--- NOTE | 2023-01-14 08:21 | NUR ---
F/u: Pt with a new A1c of 7.6% as of 01/13, last A1c 9.9% 12/04. Pt already provided with DM education this admit. Will continue to follow. Addendum: 01/14/23 at [address] Amended: Links added.
--- NOTE | 2023-01-14 10:37 | NUR ---
Received Discharge orders, reviewed with patient. Patient verbalized understanding. PICC Line Removed with cannula intact, Patient tolerated well. Patient wheeled to lobby by staff with belongings and .
== END 2023-01-14 10:50 | disposition home or self-care (01) | DRG 617 ==
LOC: ER 07:21 → ED HOLD 10:18 → EDBEDREQ 10:40 → SUR 3N 11:20
PROVIDERS: ADMIT Internal Medicine; ATTEND Internal Medicine
PROC: 02HV33Z Insertion of Infusion Device into Superior Vena Cava, Percutaneous Approach (ICD-10-PCS; 2022-12-08)
PROC: B548ZZA Ultrasonography of Superior Vena Cava, Guidance (ICD-10-PCS; 2022-12-08)
PROC: B32T1ZZ Computerized Tomography (CT Scan) of Left Pulmonary Artery using Low Osmolar Contrast (ICD-10-PCS; 2022-12-12)
PROC: B3201ZZ Computerized Tomography (CT Scan) of Thoracic Aorta using Low Osmolar Contrast (ICD-10-PCS; 2022-12-12)
PROC: B32S1ZZ Computerized Tomography (CT Scan) of Right Pulmonary Artery using Low Osmolar Contrast (ICD-10-PCS; 2022-12-12)
PROC: 0Y6V0Z0 Detachment at Right 4th Toe, Complete, Open Approach (ICD-10-PCS; principal; 2023-01-06)
DX: E11.69 Type 2 diabetes mellitus with other specified complication (principal); E11.52 Type 2 diabetes mellitus with diabetic peripheral angiopathy with gangrene; L03.115 Cellulitis of right lower limb; M86.171 Other acute osteomyelitis, right ankle and foot; E87.1 Hypo-osmolality and hyponatremia; I50.22 Chronic systolic (congestive) heart failure; E11.628 Type 2 diabetes mellitus with other skin complications; E11.65 Type 2 diabetes mellitus with hyperglycemia; M79.662 Pain in left lower leg; E11.42 Type 2 diabetes mellitus with diabetic polyneuropathy; F41.9 Anxiety disorder, unspecified; I11.0 Hypertensive heart disease with heart failure; R79.89 Other specified abnormal findings of blood chemistry; F32.A Depression, unspecified; R74.01 Elevation of levels of liver transaminase levels; F10.20 Alcohol dependence, uncomplicated; E66.01 Morbid (severe) obesity due to excess calories; E78.00 Pure hypercholesterolemia, unspecified; F17.200 Nicotine dependence, unspecified, uncomplicated; Z68.36 Body mass index [BMI] 36.0-36.9, adult; Z82.3 Family history of stroke; Z79.84 Long term (current) use of oral hypoglycemic drugs; Z79.899 Other long term (current) drug therapy; Z90.49 Acquired absence of other specified parts of digestive tract; Z71.6 Tobacco abuse counseling; Z71.41 Alcohol abuse counseling and surveillance of alcoholic
CPT/HCPCS: 36569; 93306; 96361; 96365; 96375; 96376; 99285; Z7506; 36415; 71045; 71275; 73630; 76942; 80048; 80053; 80074; 80202; 81001; 82948; 83036; 83605; 83735; 83880; 84145; 85025; 85379; 85610; 85651; 85730; 86140; 87040; 87070; 87075; 87081; 93005; 93926; 93970; 94760; 97116; 97161; 97530; A4215; A4333; A4615; A4618; A6196; A6209; A6223; A6253; A6258; A6446; A6449; A7000; C1751; G0378; J0360; J1170; J1644; J1815; J1940; J2250; J2270; J2405; J2543; J2704; J2765; J3010; J3370; J3490; J7030; J7040; J7120; Q0163; Q9967

== ENCOUNTER 2025-05-17 06:24 | Emergency (ER) | payer BC ==
[~2025-05-17] VITALS: Ht 188 cm; Wt 134.0 kg
[~2025-05-17 06:24] MED LIST changes: -ATOR10TA PO; +GABA300C PO; +GLIP5TAB23 PO; +LISI20TA28 PO; -LOP25T PO; +METF-1203 PO; +METO-395 PO; -METO50TA16 PO; -NO HOME MEDS; -ZES10T PO; +[UNRECOGNIZED DRUG - CODE]; +gabapentin capsule PO
--- NOTE | 2025-05-17 06:47 | ELECTROCARDIOGRAPH REPORT ---
[facility] Test Date: 2025-05-17 Test Time: 06:45:10 Pat Name: REYNA VILLALPANDO Department: [facility] Patient ID: [facility]-[id number] Room: Gender: M Communication Equipment Mechanic: : 1975 Requested By: SHARON LITTLE Order Number: [id number] Reading MD: Dr. 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 Sharon Little Please click the below link to view image of tracing.
[2025-05-17 07:06] LABS: MEAN PLATELET VOLUME 7.3 FL (7.4-10.4); RED CELL DISTRIBUTION WIDTH 14.6 % (11.5-14.5)
--- NOTE | 2025-05-17 07:17 | RADIOLOGY REPORT ---
CHEST RADIOGRAPH Indication: CP Technique: Single frontal view of the chest was obtained Comparison: None FINDINGS: Lines and Tubes: None Lungs: No focal consolidation. Pleura: No effusion. No pneumothorax. Cardiomediastinal contours: Unremarkable Bones: No acute osseous abnormality. IMPRESSION: 1. No acute cardiopulmonary disease.
[2025-05-17 07:23] LABS: ETHANOL < 10 MG/DL (<10)
[2025-05-17 07:34] LABS: CREATININE 1.10 MG/DL (0.60-1.10); PRO BRAIN NATRIURETIC PEPTIDE 475 PG/ML (0-125); TOTAL CARBON DIOXIDE 24.4 MMOL/L (24-32); eCRCL 92 ML/MIN; eGFR 71 ML/MIN
--- NOTE | 2025-05-17 07:41 | Physician Documentation ---
History of Present Illness ~ Chief Complaint: Dizziness Stated Complaint: DIZZY/BODY TINGLES Time Seen by MD: 07:01 OK to notify your PCP?: Yes Primary Medical Doctor: Dr. Doherty Source: patient, RN/, RN notes reviewed, old records Mode of Arrival: POV Exam Limitations: no limitations HPI This patient is a poorly-controlled diabetic hypertensive also poorly-controlled states that he has been dizzy tingling felt like he was going to pass out also describes like he is on a boat with things spinning almost like he is drunk. Patient reports being compliant with his medications. He does not know his kidney functions, his hemoglobin A1c. There was no new medications no sick contacts no recent travel denies tinnitus. Movement does make his symptoms worse. He denies any focal findings such as upper extremity weakness or numbness also denies any history of speech difficulties or confusion. He does not like coming to the hospital but requested from his that he needs to come in he denies any chest pain or shortness of breath no history of MIs. No fevers or chills. Main complaint is tingling throughout his whole body but mostly on his periphery of his hands bilaterally also his feet but he has chronic neuropathy. Medication Reconciliation Allergies: Coded Allergies: No Known Allergies (Unverified , 02/18/13) Scheduled Gabapentin (Neurontin), 900 MG PO HS Glipizide (Glipizide), 1 TAB PO DAILY Lisinopril (Lisinopril), 20 MG PO BID Metformin HCl (Metformin HCl), 1,000 MG PO BID Metoprolol Succinate (Metoprolol Succinate), 25 MG PO DAILY Metoprolol Tartrate (Lopressor tablet), 1 TAB PO Q12H [gabapentin capsule], 300 MG PO BIDBL Durable Medical Equipment Blood-Glucose Meter (Accu-Chek Guide Me Glucose Mtr), EA .SEE ORDER PRN, (DME) Past Medical History Past Medical History: High Cholesterol, Hypertension Past Surgical History: cholecystectomy, orthopedic surgeries Patient History: FH: stroke FATHER Alcohol Use: Heavy Drug Use: none Lives with: Spouse Lives In: Home Occupation: employed Review of Systems All Other Systems at this time: Reviewed and Negative Physical Exam Vital Signs: RN Vital Signs have been reviewed: Yes, Temperature: 97.4, Source: Temporal, Heart Rate: 94, Respiratory Rate: 18, BP: 185/116, Pulse Oximetry: 97, Weight: 134.000 Oxygen Flow Rate: 0 Physical Exam General: The patient is well developed, well nourished, nontoxic appearing and is in no acute distress. Skin: Learned, warm and dry with no rashes. HEENT: Head was normocephalic and atraumatic. Eyes - pupils equal, round, reactive to light and accommodation. Extraocular movements were intact. Positive horizontal nystagmus Conjunctivae were nonicteric. Ears - bilateral tympanic membranes were normal. The mouth and oropharynx were clear with moist mucous membranes. There were no pharyngeal exudates or erythema. Neck: Supple and nontender. There was no jugular venous distention, lymphadenopathy, thyromegaly or masses. Chest: Clear to auscultation bilaterally without wheezes, rales or rhonchi. No accessory muscle use. No dullness to percussion. Heart: Rate regular and rhythmic. S1, S2. No murmurs. Palpation of the chest wall was normal. No rubs or thrills. Abdomen: Soft, nontender and nondistended. Positive bowel sounds. No guarding or rebound. No hepatosplenomegaly or palpable masses. Extremities: No cyanosis, clubbing or edema. The patient moves all extremities. Pulses were equal and symmetric. Neurologic: Cranial nerves II-XII were intact. Sensation was intact to light touch throughout. Motor strength was 5/5 in all four extremities. Deep tendon reflexes were intact in both upper and lower extremities. Positive nystagmus Psychologic: The patient was oriented to person, place and time. The patient demonstrated appropriate judgement and insight. Progress Results/Orders Reviewed/noted all lab results: Yes Results/Orders Orders - HAROLDO COLLIER MD Monitor (05/17/25 06:30) Saline Lock (05/17/25 06:30) Oxygen (05/17/25 06:30) Chest,Single View (05/17/25 06:30) Electrocardiogram (05/17/25 06:37) Accucheck (05/17/25 ) Ct Head (05/17/25 07:47) Metoprolol Tartrate Tablet (Lopressor Ta (05/17/25 12:00) Completed Orders - HAROLDO COLLIER MD Cbc/Diff (05/17/25 06:30) BMP (05/17/25 06:30) PBNP (05/17/25 06:30) Hs Troponin I W Calculations (05/17/25 06:30) Hs Troponin I W Calculations (05/17/25 08:30) Hs Troponin I W Calculations (05/17/25 09:30) Chest,Single View (05/17/25 06:30) Electrocardiogram (05/17/25 06:37) Ethanol (05/17/25 07:03) MG (05/17/25 07:03) Urinalysis, Cult If Indicated (05/17/25 07:03) Drug Screen, Urine (05/17/25 07:03) Ct Head (05/17/25 07:47) Meclizine Tablets (Antivert Tablet) (05/17/25 07:30) Normal Saline 1000ml (0.9% Sodium Chlori (05/17/25 07:40) Diazepam Tablet (Valium Tablet) (05/17/25 11:50) Medications Received in ER Medications (Trade) Dose Ordered Sig/Matthew Route PRN Reason Start Time Stop Time Status Last Admin Dose Admin (Antivert tablet) 25 mg ONCE ONCE PO 05/17/25 07:30 05/17/25 07:31 DC 05/17/25 07:36 25 MG (0.9% sodium chloride (NS) 1000ml IV soln) 1,000 ml ONCE ONCE IVB 05/17/25 07:40 05/17/25 07:41 DC 05/17/25 08:01 1,000 ML (Valium tablet) 10 mg ONCE ONCE PO 05/17/25 11:50 05/17/25 11:51 DC 05/17/25 11:54 10 MG Vital Signs 05/17/25 05/17/25 05/17/25 05/17/25 06:26 07:06 07:08 08:38 Temp 97.4 Pulse 102 94 99 Resp 16 18 18 15 B/P (MAP) 197/108 185/116 (139) 162/101 (121) Pulse Ox 100 97 96 O2 Flow Rate 0 05/17/25 05/17/25 05/17/25 09:30 10:30 11:24 Pulse 91 91 95 Resp 14 18 19 B/P (MAP) 161/104 (123) 152/102 (119) 158/102 (120) Pulse Ox 97 97 99 O2 Flow Rate 0 0 0 Laboratory Tests Test 05/17/25 06:43 05/17/25 06:50 05/17/25 07:03 05/17/25 08:34 Glucometer 197 H White Blood Count 6.7 Red Blood Count 5.46 Hemoglobin 17.5 Hematocrit 50.0 Mean Corpuscular Volume 91.4 Mean Corpuscular Hemoglobin 32.0 H Mean Corpuscular Hemoglobin Concent 35.0 Red Cell Distribution Width 14.6 H Platelet Count 229 Mean Platelet Volume 7.3 L Neutrophils (%) (Auto) 60.0 Lymphocytes (%) (Auto) 20.6 L Monocytes (%) (Auto) 9.3 Eosinophils (%) (Auto) 9.1 H Basophils (%) (Auto) 1.0 Neutrophils # (Auto) 4.0 Lymphocytes # (Auto) 1.4 Monocytes # (Auto) 0.6 Eosinophils # (Auto) 0.6 Basophils # (Auto) 0.1 CBC Comment Sodium Level 140 Potassium Level 4.2 Chloride Level 102 Carbon Dioxide Level 24.4 Anion Gap 14 Blood Urea Nitrogen 11 Creatinine 1.10 Estimated GFR/1.73 m2 71 BUN/Creatinine Ratio 10.0 Glucose Level 177 H Calcium Level 9.9 Troponin I High Sensitivity 17 18 Pro-B-Type Natriuretic Peptide 475 H Albumin 4.5 Chemistry Comments Magnesium Level 1.8 Ethyl Alcohol Level < 10 Urine Specimen Description Urinal Urine Color Yellow Urine Clarity Clear Urine pH 7.5 Urine Specific [place] 1.010 Urine Protein Negative Urine Glucose (UA) Negative Urine Ketones Trace H Urine Occult Blood Negative Urine Nitrite Negative Urine Bilirubin Negative Urine Urobilinogen 1.0 Urine Leukocyte Esterase Negative Urine Culture Indicated Not ind Volume Urine Centrifuged 10 ml Urine Comment Troponin I High Sens Percent Delta 5 Troponin I Hi Sens Absolute Change 1 Urine Opiates Screen Negative Urine Methadone Screen Negative Urine Fentanyl Screen Negative Urine Barbiturates Screen Negative Urine Phencyclidine Screen Negative Urine Amphetamines Screen Negative Urine Benzodiazepines Screen Negative Urine Cocaine Screen Negative Urine Cannabinoids Screen Negative Drug Screen Comment Test 05/17/25 10:06 Troponin I High Sensitivity 18 Troponin I High Sens Percent Delta 0 Troponin I Hi Sens Absolute Change 0 Re-Evaluation Re-Evaluation : Re-Evaluation: Improved Progress Patient was seen and examined. Patient was given reassurance. Patient received a L bolus. Laboratory work was obtained. He was complaining of some dizziness had some vertigo-like symptoms. CBC was within normal limits without any anemia. Chemistry with negative troponins also within normal limits normal electrolytes and kidney function tox screen alcohol both negative and urinalysis showed some trace ketones otherwise well hydrated and within normal limits. Patient's glucose was elevated at 177 and did have entire L bolus. Patient's n europathy is chronic in his feet in severe. His hands however and body was a new sensation. Does have some slight anxiety as well. Patient is workup was nondiagnostic. Thought a benzodiazepine might help. But there was no signs of infection electrolyte abnormality, no cardiac etiology. Patient was then discharged home. Continuous industrial order clerk interpretation shows normal sinus rhythm heart rate 90s, no ectopy, normal, my interpretation. Pulse oximetry monitor interpretation shows normal oxygenation at 97% room air, normal, my interpretation. EKG/XRAY/CT/US/VASC/MRI EKG : Intepreting Monitor?: Yes Additional Comment Ordering Physician: HAROLDO COLLIER MD Exam Name: ELECTROCARDIOGRAM Technologist: [facility] Test Date: 2025-05-17 Test Time: 06:45:10 Pat Name: REYNA VILLALPANDO Department: [facility] Patient ID: [id number] Room: Gender: President + Publisher: : 1975 Requested By: HAROLDO COLLIER Order Number: [id number] Reading MD: Dr. Haroldo Collier Measurements Intervals [place] Rate: 94 P: 56 [place]: 157 QRS: 76 QRSD: 108 T: -25 QT: 392 QTc: 491 Interpretive Statements Sinus rhythm Probable left atrial enlargement Inferior infarct, age indeterminate Probable anterolateral infarct, old Baseline wander in lead(s) V2 Electronically Signed On 05-17-2025 7:10:[address] Haroldo Collier Please click the below link to view image of tracing. Chest X-Ray : Interpreted By: self, radiologist, both Additional Comments Ordering Physician: HAROLDO COLLIER MD Exam: CHEST,SINGLE VIEW CHEST RADIOGRAPH Indication: CP Technique: Single frontal view of the chest was obtained Comparison: None FINDINGS: Lines and Tubes: None Lungs: No focal consolidation. Pleura: No effusion. No pneumothorax. Cardiomediastinal contours: Unremarkable Bones: No acute osseous abnormality. IMPRESSION: 1. No acute cardiopulmonary disease. Heart Score: Heart Score Response (Comments) Value History Slightly Suspicious 0 EKG Repolarization Disturb 1 Age 45-64 1 Risk Factors 1 or 2 risk factors 1 Troponin Normal limit 0 Total 3 Medical Decision Making Additional info obtained from: old records Differential Dx:Considerations: Include: anemia, CVA, dehydration, dysrhythmia, electrolyte imbalance, encephalopathy, Guillain-Wiley, hypoglycemia, hypotension, hypovolemia, labyrinthitis, Meniere's disease, myasathenia gravis, myocardial infarction, pulmonary embolus, renal failure, respiratory failure, TIA, VBI, vertigo central, vertigo peripheral, vestibular neuronitis, other Departure Disposition: HOME / SELF CARE / HOMELESS Impression: Primary Impression: Dizziness Additional Impressions: Paresthesias Hypertension Condition: Stable Discharge Instructions: Dizziness Referrals: NO PRIMARY CARE PROVIDER (PCP) Prescriptions Metoprolol Tartrate (Lopressor tablet) 25 Mg Tablet 1 TAB PO Q12H for 30 Days, #60 TAB Hold for SBP below 100mm Hg Hold for Heart Rate below 60. Prov: HAROLDO COLLIER MD 05/17/25 Education Educated: Patient Educated regarding: diagnosis, prognosis, need for follow up, other Signature Scribe Signature: x Attestation: The note accurately reflects work and decisions made by me.Haroldo Colleir MD 05/17/25 07:40 HAROLDO COLLIER MD May 17, 2025 07:41
[2025-05-17] MEDS: normal saline 1000ML IV soln IVB ONE (08:01)
--- NOTE | 2025-05-17 08:11 | RADIOLOGY REPORT ---
EXAM: CT CT HEAD INDICATION: aloc TECHNIQUE: CT of the head without intravenous contrast. Coronal and sagittal reformatted images are s ubmitted. Radiation Dose : 1. Head: CT Dose: CTDI volume is 67.6 mGy. Dose-length product is 1238.4 mGy*cm The dose indicators for CT are the volume Computed Tomography (CT) Dose Index (CTDIvol) and the Dose Length Product (DLP), and are measured in units of mGy and mGy-cm, respectively. These indicators are not patient dose, but values generated from the CT scanner acquisition factors. The report includes radiation exposure data for exposures received during this examination. All CT scans at this medical facility are performed using dose modulation techniques as appropriate to a performed exam including the following: Automated exposure control was utilized; adjustment of the MA and/or KV according to patient size; and use of iterative reconstruction technique. COMPARISON: None FINDINGS: There is no evidence of acute intracranial hemorrhage, extra-axial collection, mass effect, midline s hift, herniation or hydrocephalus. The ventricles, sulci and cisterns are age appropriate. The peterson-white differentiation is intact. The visualized paranasal sinuses and mastoid air cells are clear. No depressed calvarial fracture. The surrounding soft tissues are unremarkable. IMPRESSION: 1. No evidence of acute intracranial abnormality.
[2025-05-17 09:16] LABS: LEUKOCYTE ESTERASE ,URINE NEGATIVE (Neg); NITRITES, URINE NEGATIVE (Neg); OCCULT BLOOD,URINE NEGATIVE (Neg)
[2025-05-17 09:31] LABS: URINE AMPHETAMINE SCREEN NEGATIVE (Neg); URINE BARBITUATE SCREEN NEGATIVE (Neg); URINE BENZODIAZEPINES SCREEN NEGATIVE (Neg); URINE CANNABINOID SCREEN NEGATIVE (Neg); URINE COCAINE SCREEN NEGATIVE (Neg); URINE METHADONE SCREEN NEGATIVE (Neg); URINE OPIATE SCREEN NEGATIVE (Neg); URINE PHENCYCLIDINE SCREEN NEGATIVE (Neg)
[2025-05-17 09:34] LABS: UA COLLECTION TYPE URINAL
[2025-05-17] MEDS ORDERED: LOP12.5T PO (12:00)
[2025-05-17 12:44] VITALS: BP 170/116; PULSE 87; RESP 16; TEMP 98; O2SAT 98
== END 2025-05-17 12:48 | disposition home or self-care (01) ==
LOC: ER 06:24
DX: R42 Dizziness and giddiness (principal); R20.0 Anesthesia of skin; E11.9 Type 2 diabetes mellitus without complications; E78.00 Pure hypercholesterolemia, unspecified; I10 Essential (primary) hypertension; Z90.49 Acquired absence of other specified parts of digestive tract; Z79.899 Other long term (current) drug therapy
CPT/HCPCS: 36415; 70450; 71045; 80048; 80305; 80320; 81003; 82948; 83735; 83880; 84484; 85025; 93005; 96360; 99285; J7030; J8597